=== PATIENT | female | born 1940 | race Caucasian/White ===

== ENCOUNTER 2018-11-27 02:11 | Day surgery (SDC) | payer MEDICARE ==
[~2018-11-27 02:11] MED LIST: ACEB200; CELE200; FLUO10; FLUO20; GLUC500; HYDCHL25; LOVA20; META400 PO; NIAC500; OXYACE10 PO
[2018-12-01] MEDS ORDERED: BUME1 PO (13:42)
[2018-12-01] MEDS ORDERED: Prozac20 MG PO (13:42)
[2018-12-01] MEDS ORDERED: Lovastatin20 MG PO (13:42)
[2018-12-01] MEDS ORDERED: VITAMIN D32000 UNIT PO (13:42)
[2018-12-01] MEDS ORDERED: Azor 5-20 MG T1 EACH PO (13:42)
[2018-12-01] MEDS ORDERED: VITAMIN C500 M1 PO (13:43)
[2018-12-01] MEDS ORDERED: Vitamin B Comple1 EA PO (13:43)
[2018-12-01] MEDS ORDERED: Flovent 110 MCG12 GM INH (13:44)
[2018-12-01] MEDS ORDERED: IRON INFUSIONS (13:44)
[2018-12-01] MEDS ORDERED: TIOT18 INH (13:44)
[2018-12-01] MEDS ORDERED: ALBU90OI61 INH (13:44)
[2018-12-01] MEDS ORDERED: LISI5 PO (13:45)
== END 2018-11-27 22:51 | disposition home or self-care (01) ==
LOC: US 02:11
DX: R59.0 Localized enlarged lymph nodes (principal)
CPT/HCPCS: 76857

== ENCOUNTER 2018-12-10 11:48 | Day surgery (SDC) | payer MEDICARE ==
[~2018-12-10] VITALS: Ht 154.9 cm; Wt 92.6 kg
[~2018-12-10 11:48] MED LIST changes: +ALBU90OI61 INH; +Azor 5-20 MG T1 EACH PO; +BUME1 PO; +Flovent 110 MCG12 GM INH; +IRON INFUSIONS; +LISI5 PO; +Lovastatin20 MG PO; +Prozac20 MG PO; +TIOT18 INH; +VITAMIN C500 M1 PO; +VITAMIN D32000 UNIT PO; +Vitamin B Comple1 EA PO
[2018-12-10] MEDS ORDERED: POTCHL10ER PO (12:29)
== END 2018-12-10 14:53 | disposition home or self-care (01) ==
LOC: ORSCSDS 11:48
PROVIDERS: Internal Medicine Gastroenterology
PROC: 0D5H8ZZ Destruction of Cecum, Via Natural or Artificial Opening Endoscopic (ICD-10-PCS; principal; 2018-12-10 13:00)
PROC: 0DB68ZX Excision of Stomach, Via Natural or Artificial Opening Endoscopic, Diagnostic (ICD-10-PCS; principal; 2018-12-10 13:00)
PROC: 0D5K8ZZ Destruction of Ascending Colon, Via Natural or Artificial Opening Endoscopic (ICD-10-PCS; principal; 2018-12-10 13:00)
PROC: 0DB98ZX Excision of Duodenum, Via Natural or Artificial Opening Endoscopic, Diagnostic (ICD-10-PCS; principal; 2018-12-10 13:00)
DX: D50.9 Iron deficiency anemia, unspecified (principal); R19.5 Other fecal abnormalities; K55.20 Angiodysplasia of colon without hemorrhage; K57.30 Diverticulosis of large intestine without perforation or abscess without bleeding; K31.7 Polyp of stomach and duodenum; K29.80 Duodenitis without bleeding; K29.70 Gastritis, unspecified, without bleeding; I10 Essential (primary) hypertension; E11.9 Type 2 diabetes mellitus without complications; Z87.891 Personal history of nicotine dependence; J44.9 Chronic obstructive pulmonary disease, unspecified; Z79.899 Other long term (current) drug therapy
CPT/HCPCS: 82947; 87081; 88305; 88342; J2405; J2704; J7120

== ENCOUNTER 2019-01-02 07:57 | Day surgery (SDC) | payer MEDICARE ==
[~2019-01-02 07:57] MED LIST changes: +POTCHL10ER PO
== END 2019-01-02 23:36 | disposition home or self-care (01) ==
LOC: MOI US 07:57
PROC: 07B53ZX Excision of Right Axillary Lymphatic, Percutaneous Approach, Diagnostic (ICD-10-PCS; principal; 2019-01-02)
DX: C85.14 Unspecified B-cell lymphoma, lymph nodes of axilla and upper limb (principal)
CPT/HCPCS: 38505; 76942; 88305; 88341; 88342

== ENCOUNTER → 2019-04-18 | Outpatient (CLI) | payer MEDICARE ==
[~2019-04-18] MED LIST changes: +Azor 10-20 MG1 EACH PO; +Baclofen10 MG PO; +Bumetanide1 MG PO; +COREG6.25 MG PO; +Flovent Disku100 MCG INH; +IBUP800 PO; +LOSA25 PO; +LOVA40 PO; +Percocet 5-3251 EACH PO
[2019-04-18 14:18] LABS: BASOPHILS ABSOLUTE AUTO 0.05 K/mm3 (0.00-0.23); BASOPHILS PERCENT AUTO 1 % (0-2); EOSINOPHILS ABSOLUTE AUTO 0.32 K/mm3 (0.00-0.68); EOSINOPHILS PERCENT AUTO 3 % (0-6); Hematocrit 36.3 % (33.0-51.0); Hemoglobin 11.9 g/dL (11.5-16.0); IMMATURE GRAN ABSOLUTE AUTO 0.06 K/mm3 (0.00-0.10); IMMATURE GRAN PERCENT AUTO 1 % (0-1); LYMPHOCYTES ABSOLUTE AUTO 2.14 K/mm3 (0.84-5.20); LYMPHOCYTES PERCENT AUTO 21 % (21-46); MONOCYTES ABSOLUTE AUTO 0.95 K/mm3 (0.16-1.47); MONOCYTES PERCENT AUTO 9 % (4-13); Mean Corpuscular HGB 29.2 pg (26.0-34.0); Mean Corpuscular HGB Conc 32.8 g/dL (31.5-36.5); Mean Platelet Volume 9.8 fL (9.1-12.4); NEUTROPHILS ABSOLUTE AUTO 6.93 K/mm3 (1.96-9.15); NEUTROPHILS PERCENT AUTO 66 % (41-73); Platelet Count 202 K/mm3 (150-400); RDW Coefficient Variation 14.4 % (11.7-14.2); RDW Standard Deviation 46.5 fL (35.1-46.3); Red Blood Cell Count 4.07 M/mm3 (3.80-5.20); White Blood Cell Count 10.45 K/mm3 (4.00-11.30)
[2019-04-18 14:25] LABS: Mean Corpuscular Volume 89 fL (80-100)
[2019-04-18 14:37] LABS: Albumin, Blood 3.2 g/dL (3.4-5.0); Bun/Creatinine Ratio 19.2 (12.0-20.0); Calcium, Blood 9.1 mg/dL (8.5-10.1); Creatinine, Blood 1.25 mg/dL (0.40-1.00); Potassium, Blood 3.7 mmol/L (3.5-5.5)
[2019-04-18 15:28] LABS: Albumin/Globulin Ratio 0.9 (0.8-1.8); Bilirubin, Total 0.3 mg/dL (0.1-1.0); Globulin, Blood 3.7 g/dL (2.2-4.0); Total Protein, Blood 6.9 g/dL (6.4-8.2)
== END ==
LOC: LAB SHORT 14:15 → LAB EV 14:15
PROVIDERS: Emergency Medicine
DX: R42 Dizziness and giddiness (principal)
CPT/HCPCS: 80053; 85025

== ENCOUNTER 2019-05-01 11:47 | Emergency (ER) | payer MEDICARE ==
[~2019-05-01] VITALS: Ht 154.9 cm; Wt 96.6 kg
[~2019-05-01 11:47] MED LIST changes: -Azor 10-20 MG1 EACH PO; -Baclofen10 MG PO; -Bumetanide1 MG PO; -COREG6.25 MG PO; -Flovent Disku100 MCG INH; -IBUP800 PO; -LOSA25 PO; -LOVA40 PO; -Percocet 5-3251 EACH PO
[2019-05-01] MEDS ORDERED: COREG6.25 MG PO (13:04)
[2019-05-01] MEDS ORDERED: Flovent Disku100 MCG INH (13:04)
[2019-05-01] MEDS ORDERED: LOSA25 PO (13:07)
[2019-05-01] MEDS ORDERED: Azor 10-20 MG1 EACH PO (14:03)
[2019-05-01] MEDS ORDERED: Bumetanide1 MG PO (14:04)
[2019-05-01] MEDS ORDERED: LOVA40 PO (14:05)
[2019-05-01] MEDS ORDERED: Percocet 5-3251 EACH PO (16:52)
[2019-05-01] MEDS ORDERED: IBUP800 PO (16:52)
[2019-05-01] MEDS ORDERED: Baclofen10 MG PO (16:52)
== END 2019-05-01 19:02 | disposition home or self-care (01) ==
LOC: ER 11:47
DX: S09.90XA Unspecified injury of head, initial encounter (principal); G89.11 Acute pain due to trauma; M54.5 Low back pain; M25.511 Pain in right shoulder; M53.3 Sacrococcygeal disorders, not elsewhere classified; J44.9 Chronic obstructive pulmonary disease, unspecified; E11.9 Type 2 diabetes mellitus without complications; I10 Essential (primary) hypertension; Z88.8 Allergy status to other drugs, medicaments and biological substances; Z79.899 Other long term (current) drug therapy; W01.0XXA Fall on same level from slipping, tripping and stumbling without subsequent striking against object, initial encounter
CPT/HCPCS: 70450; 72100; 96372; 99284-25; J1170; J1885

== ENCOUNTER 2019-08-12 07:58 | Emergency (ER) | payer MEDICARE ==
[~2019-08-12] VITALS: Ht 154.9 cm; Wt 104.3 kg
[~2019-08-12 07:58] MED LIST changes: +Azor 10-20 MG1 EACH PO; +Baclofen10 MG PO; +Bumetanide1 MG PO; +COREG6.25 MG PO; +Flovent Disku100 MCG INH; +IBUP800 PO; +LOSA25 PO; +LOVA40 PO; +Percocet 5-3251 EACH PO
[2019-08-12 08:55] LABS: BASOPHILS ABSOLUTE AUTO 0.06 K/mm3 (0.00-0.23); BASOPHILS PERCENT AUTO 1 % (0-2); EOSINOPHILS ABSOLUTE AUTO 0.11 K/mm3 (0.00-0.68); EOSINOPHILS PERCENT AUTO 1 % (0-6); Hematocrit 39.5 % (33.0-51.0); Hemoglobin 11.6 g/dL (11.5-16.0); IMMATURE GRAN ABSOLUTE AUTO 0.08 K/mm3 (0.00-0.10); IMMATURE GRAN PERCENT AUTO 1 % (0-1); LYMPHOCYTES ABSOLUTE AUTO 2.44 K/mm3 (0.84-5.20); LYMPHOCYTES PERCENT AUTO 22 % (21-46); MONOCYTES ABSOLUTE AUTO 1.48 K/mm3 (0.16-1.47); MONOCYTES PERCENT AUTO 13 % (4-13); Mean Corpuscular HGB 26.2 pg (26.0-34.0); Mean Corpuscular HGB Conc 29.4 g/dL (31.5-36.5); Mean Corpuscular Volume 89 fL (80-100); NEUTROPHILS ABSOLUTE AUTO 7.11 K/mm3 (1.96-9.15); NEUTROPHILS PERCENT AUTO 63 % (41-73); Platelet Count 242 K/mm3 (150-400); RDW Coefficient Variation 17.9 % (11.7-14.2); RDW Standard Deviation 58.4 fL (35.1-46.3); Red Blood Cell Count 4.42 M/mm3 (3.80-5.20); White Blood Cell Count 11.28 K/mm3 (4.00-11.30)
[2019-08-12 09:06] LABS: Alanine Aminotransfer (ALT/SGP 54 U/L (12-78); Albumin, Blood 3.4 g/dL (3.4-5.0); Albumin/Globulin Ratio 0.9 (0.8-1.8); Alk Phos 147 U/L (50-136); Anion Gap 6 mmol/L (6-16); Aspartate Aminotrans (AST/SGOT 43 U/L (12-37); Bilirubin, Total 0.8 mg/dL (0.1-1.0); Blood Urea Nitrogen 46 mg/dL (8-24); Bun/Creatinine Ratio 31.9 (12.0-20.0); CO2, Blood 26 mmol/L (21-32); Calcium, Blood 9.4 mg/dL (8.5-10.1); Chloride, Blood 106 mmol/L (98-108); Creatinine, Blood 1.44 mg/dL (0.40-1.00); Globulin, Blood 3.8 g/dL (2.2-4.0); Glomerular Filtration Rate 37 (60-); Glucose, Blood 279 mg/dL (70-99); Potassium, Blood 5.5 mmol/L (3.5-5.5); Sodium, Blood 138 mmol/L (136-145); Total Protein, Blood 7.2 g/dL (6.4-8.2); Troponin I <0.015 ng/mL (0.000-0.040)
== END 2019-08-12 11:11 | disposition home or self-care (01) ==
LOC: ER 07:58
PROVIDERS: Emergency Medicine
DX: I48.91 Unspecified atrial fibrillation (principal); J44.9 Chronic obstructive pulmonary disease, unspecified; I10 Essential (primary) hypertension; E11.9 Type 2 diabetes mellitus without complications; Z87.891 Personal history of nicotine dependence; Z79.899 Other long term (current) drug therapy; Z79.51 Long term (current) use of inhaled steroids
CPT/HCPCS: 36415; 71046; 80053; 83880; 84484; 85025; 93005; 93010; 96374; 99285-25

== ENCOUNTER 2019-08-27 09:06 | Inpatient (IN) | payer MEDICARE ==
[~2019-08-27] VITALS: Ht 154.9 cm; Wt 102.6 kg
[~2019-08-27 09:06] MED LIST changes: -LOVA40 PO
[2019-08-27 09:40] LABS: BASOPHILS ABSOLUTE AUTO 0.05 K/mm3 (0.00-0.23); BASOPHILS PERCENT AUTO 0 % (0-2); EOSINOPHILS ABSOLUTE AUTO 0.05 K/mm3 (0.00-0.68); EOSINOPHILS PERCENT AUTO 0 % (0-6); Hematocrit 38.7 % (33.0-51.0); Hemoglobin 11.6 g/dL (11.5-16.0); IMMATURE GRAN ABSOLUTE AUTO 0.09 K/mm3 (0.00-0.10); IMMATURE GRAN PERCENT AUTO 1 % (0-1); LYMPHOCYTES ABSOLUTE AUTO 2.32 K/mm3 (0.84-5.20); LYMPHOCYTES PERCENT AUTO 18 % (21-46); MONOCYTES ABSOLUTE AUTO 1.54 K/mm3 (0.16-1.47); MONOCYTES PERCENT AUTO 12 % (4-13); Mean Corpuscular HGB 25.8 pg (26.0-34.0); Mean Corpuscular Volume 86 fL (80-100); Mean Platelet Volume 11.3 fL (9.1-12.4); NEUTROPHILS PERCENT AUTO 69 % (41-73); Platelet Count 226 K/mm3 (150-400); RDW Coefficient Variation 17.5 % (11.7-14.2); RDW Standard Deviation 55.2 fL (35.1-46.3); Red Blood Cell Count 4.49 M/mm3 (3.80-5.20); White Blood Cell Count 12.95 K/mm3 (4.00-11.30)
[2019-08-27 10:05] LABS: Albumin, Blood 3.3 g/dL (3.4-5.0); Albumin/Globulin Ratio 0.9 (0.8-1.8); Bilirubin, Total 1.1 mg/dL (0.1-1.0); Bun/Creatinine Ratio 27.3 (12.0-20.0); Calcium, Blood 10.2 mg/dL (8.5-10.1); Creatinine, Blood 1.39 mg/dL (0.40-1.00); Globulin, Blood 3.8 g/dL (2.2-4.0); Potassium, Blood 5.8 mmol/L (3.5-5.5); Total Protein, Blood 7.1 g/dL (6.4-8.2)
[2019-08-27 10:07] LABS: Troponin I 0.019 ng/mL (0.000-0.040)
[2019-08-27] MEDS ORDERED: SPIRONOLACTONE25 MG PO (12:22)
[2019-08-27] MEDS ORDERED: OLMESARTAN MEDO20 MG PO (12:23)
[2019-08-27] MEDS ORDERED: METO50ER PO (12:23)
[2019-08-27] MEDS ORDERED: TORSE20 PO (12:24)
--- NOTE | 2019-08-27 14:49 | NUR ---
PT ADMITTED FROM ED TO PCU 11. SHE IS SOB ON EXERTION, TELE IN PLACE AFIB IN 1TEENS NOTED. XRAY REPORT SHOWS POSSIBILITY OF PE. CALL TO DR SUAREZ TO MAKE HIM AWARE. STATES HE WILL REVIEW FURTHER
[2019-08-27] MEDS ORDERED: CARV6.25 PO (15:35)
[2019-08-27] MEDS ORDERED: Percocet 5-3251 EACH PO (15:36)
[2019-08-27] MEDS ORDERED: TYLECOD3 PO (15:38)
[2019-08-27] MEDS ORDERED: ELIQUIS5 MG PO (15:38)
[2019-08-27] MEDS ORDERED: Fluocinonide15 GM TOP (15:46)
[2019-08-27] MEDS ORDERED: CLOB.05TO TOP (15:55)
--- NOTE | 2019-08-27 17:59 | NUR ---
Echocardiogram completed.
[2019-08-27 19:02] LABS: Source, Urine Clean Catch
[2019-08-27 19:06] LABS: Bilirubin, Urine Neg (Neg); Blood, Urine Neg (Neg); Glucose Qualitative, Urine Neg (Neg); Ketones, Urine Neg (Neg); Leukocyte Esterase, Urine Neg (Neg); Nitrite, Urine Neg (Neg); Protein, Urine Neg (Neg); Urobilinogen, Urine NORM (Normal)
[2019-08-27 19:14] LABS: Appearance, Urine Clear (Clear); Color, Urine Pale Yellow (P-Yellow)
--- NOTE | 2019-08-27 19:15 | NUR ---
RECEIVED REPORT FROM ZULEMA SHAFFER. ASSUMED CARE OF PT. IN NO ACUTE DISTRESS AT THIS TIME. DENIES ANY NEEDS, CALL LIGHT AND POSSESSIONS IN REACH, WILL CONTINUE TO MONITOR.
--- NOTE | 2019-08-27 19:33 | NUR ---
SHIFT SUMMARY: PT RESTING QUIETLY IN BED. ASSISTED TO RESTROOM, DIVIDING MACHINE OPERATOR HELPER BROUGHT IN NEW ATTENDS. FAMILY LEFT FOR NIGHT. CURRENTLY AFIB 1TEENS ON TELE. NO ACUTE NEEDS OR CONCERNS AT THIS TIME.
[2019-08-28 04:44] LABS: BASOPHILS ABSOLUTE AUTO 0.05 K/mm3 (0.00-0.23); BASOPHILS PERCENT AUTO 0 % (0-2); EOSINOPHILS ABSOLUTE AUTO 0.15 K/mm3 (0.00-0.68); EOSINOPHILS PERCENT AUTO 1 % (0-6); Hematocrit 34.1 % (33.0-51.0); Hemoglobin 10.4 g/dL (11.5-16.0); IMMATURE GRAN ABSOLUTE AUTO 0.06 K/mm3 (0.00-0.10); IMMATURE GRAN PERCENT AUTO 1 % (0-1); LYMPHOCYTES ABSOLUTE AUTO 3.02 K/mm3 (0.84-5.20); LYMPHOCYTES PERCENT AUTO 25 % (21-46); MONOCYTES ABSOLUTE AUTO 1.65 K/mm3 (0.16-1.47); MONOCYTES PERCENT AUTO 14 % (4-13); Mean Corpuscular HGB 25.8 pg (26.0-34.0); Mean Corpuscular HGB Conc 30.5 g/dL (31.5-36.5); Mean Corpuscular Volume 85 fL (80-100); Mean Platelet Volume 10.6 fL (9.1-12.4); NEUTROPHILS ABSOLUTE AUTO 7.11 K/mm3 (1.96-9.15); NEUTROPHILS PERCENT AUTO 59 % (41-73); Platelet Count 184 K/mm3 (150-400); RDW Coefficient Variation 17.3 % (11.7-14.2); RDW Standard Deviation 53.7 fL (35.1-46.3); Red Blood Cell Count 4.03 M/mm3 (3.80-5.20); White Blood Cell Count 12.04 K/mm3 (4.00-11.30)
[2019-08-28 05:04] LABS: Alanine Aminotransfer (ALT/SGP 50 U/L (12-78); Albumin, Blood 2.8 g/dL (3.4-5.0); Albumin/Globulin Ratio 0.8 (0.8-1.8); Alk Phos 128 U/L (50-136); Anion Gap 5 mmol/L (6-16); Aspartate Aminotrans (AST/SGOT 42 U/L (12-37); Bilirubin, Total 0.8 mg/dL (0.1-1.0); Blood Urea Nitrogen 41 mg/dL (8-24); Bun/Creatinine Ratio 32.5 (12.0-20.0); CHOL/HDL RATIO 3.2; CO2, Blood 30 mmol/L (21-32); Calcium, Blood 9.6 mg/dL (8.5-10.1); Chloride, Blood 104 mmol/L (98-108); Cholesterol 94 mg/dL (50-200); Creatinine, Blood 1.26 mg/dL (0.40-1.00); Globulin, Blood 3.4 g/dL (2.2-4.0); Glomerular Filtration Rate 43 (60-); Glucose, Blood 90 mg/dL (70-99); HDL Cholesterol 29 mg/dL (>39); LDL/HDL RATIO 1.7; Low Density Lipoprotein Chol 49 mg/dL (0-110); Potassium, Blood 4.2 mmol/L (3.5-5.5); Sodium, Blood 139 mmol/L (136-145); Total Protein, Blood 6.2 g/dL (6.4-8.2); Triglycerides 82 mg/dL (30-160); Very Low Density Lipoprot Chol 16 mg/dL (6-32)
--- NOTE | 2019-08-28 07:10 | NUR ---
recvd bedside report from previous shift ZULEMA Bermudez/Robb. pt a/o x 4, pleasant/cooperative, in bed. bed rails up x 2, call light within reach, bed in lowest position.
--- NOTE | 2019-08-28 08:00 | NUR ---
PT RESTING IN BED COMFORTABLY, IN NO ACUTE DISTRESS. WAS MONITORED EVERY 1-2 HOURS WITH NEEDS MET, DENIES ANY NEEDS AT THIS TIME. SLEPT T/O SHIFT, VS STABLE. CALL LIGHT AND POSSESSIONS IN REACH, BED IN LOW AND LOCKED POSITION.
--- NOTE | 2019-08-28 11:33 | NUR ---
family in with pt
--- NOTE | 2019-08-28 12:00 | NUR ---
dr dickinson rounding on pt, transfer status med w/telemetry
--- NOTE | 2019-08-28 19:28 | NUR ---
shift summary: vss, no acute changes, tele shows afib in 80-90. pt shows a/o x 4, pleasant/cooperative, no n/v, tolerated PO intake. voiding with diuretic, BM x 1 today. no pain, uses fww to bathroom, family has visited today, worked with PT/OT this shift. lungs are diminished, no crackles, no wheezes. pt states she feels much better.
--- NOTE | 2019-08-28 19:30 | NUR ---
BEDSIDE REPORT REC'D FROM EDIL POOLE. PT UP TO BR AND AMBULATING BACK TO BED WITH FWW UPON ARRIVAL TO ROOM FOR REPORT. PT NOTED TO HAVE BRUISING ON FACE FROM RECENT FALL. ASSESSMENT NOTED. VSS. CALL LIGHT IN REACH. RT TO ROOM TO SET UP HOME CPAP. BED ALARM IN PLACE.
--- NOTE | 2019-08-28 23:30 | NUR ---
PAIN MEDS GIVEN FOR FACE, BACK PAIN AND TO HELP SLEEP. CALL LIGHT IN REACH.
--- NOTE | 2019-08-29 05:10 | NUR ---
SHIFT SUMMARY PT HAS BEEN SLEEPING SINCE 329 WITH CPAP OFF AND ON ROOM AIR. CONT BIOX ALARMING OFF AND ON. BUT PT STATES MASK IS HURTING HER FACE. HAS BEEN GETTING UP TO BR ON HER OWN FOR THE MOST PART AND CALLING FOR ASSISTANCE BACK TO BED. NO OTHER CHANGES AND NO NEW COMPLAINTS. WILL CONT TO MONITOR, DOCUMENT ANY CHANGES AND WILL REPORT TO DAY SHIFT RN. CALL LIGHT IN REACH.
--- NOTE | 2019-08-29 09:52 | NUR ---
pt laying in bed awake, a/ox3, maybe a bit forgetful at times, pleasant and cooperative with care, follows commands well, lungs are course with exp wheezing in mid and bases, clear in upper [place], resp even and unlabored, on r/a, no cough noted, hrirr, tele in place running afib per monitor, see strip, rate in the low 100's, trace pitting edema in the b/l le, not so much in feet, iv site to rac, site is clear and patent, btx4, abd flat soft nontender, voids via br, skin c/w/d, maew, lizzie, call light in reach.
--- NOTE | 2019-08-29 15:31 | NUR ---
pt has been sitting up in chair all afternoon, family in visiting. wants a recliner chair, software program manager is looking for one for her Dr. Mulligan was in and wants to increase her dose of metoprol, sbp was 95 this afternoon so could not give an extra 25mg. no further changes. call light in reach.
--- NOTE | 2019-08-29 18:40 | NUR ---
PT BACK TO BED, STATES RECLINER ISN'T THAT COMFORTABLE. DOING OK. STATES SHE IS COMFORTABLE IN BED AT THIS TIME, NO FURTHER NEEDS, CALL LIGHT IN REACH.
--- NOTE | 2019-08-29 19:55 | NUR ---
Assumed Care Pt alert and oriented, able to make needs known with call light. VSS. Tele showing afib in 110-120, pt without sx. Denies SOB, denies Palpitations, denies dizziness or lightheadedness. See shift assessment for detailed assessment. Pt up to bathroom with walker and SBA. Steady on feet. No acute concerns at this time. Pt is S/L. PIV leaking, removed. Will continue to monitor
[2019-08-30 02:42] LABS: BASOPHILS ABSOLUTE AUTO 0.03 K/mm3 (0.00-0.23); BASOPHILS PERCENT AUTO 0 % (0-2); EOSINOPHILS ABSOLUTE AUTO 0.32 K/mm3 (0.00-0.68); EOSINOPHILS PERCENT AUTO 3 % (0-6); Hemoglobin 10.9 g/dL (11.5-16.0); IMMATURE GRAN ABSOLUTE AUTO 0.06 K/mm3 (0.00-0.10); IMMATURE GRAN PERCENT AUTO 1 % (0-1); LYMPHOCYTES ABSOLUTE AUTO 2.86 K/mm3 (0.84-5.20); LYMPHOCYTES PERCENT AUTO 27 % (21-46); MONOCYTES ABSOLUTE AUTO 1.25 K/mm3 (0.16-1.47); MONOCYTES PERCENT AUTO 12 % (4-13); Mean Corpuscular HGB 25.6 pg (26.0-34.0); Mean Corpuscular HGB Conc 30.3 g/dL (31.5-36.5); Mean Corpuscular Volume 85 fL (80-100); Mean Platelet Volume 10.9 fL (9.1-12.4); NEUTROPHILS ABSOLUTE AUTO 6.01 K/mm3 (1.96-9.15); NEUTROPHILS PERCENT AUTO 57 % (41-73); Platelet Count 208 K/mm3 (150-400); RDW Coefficient Variation 17.4 % (11.7-14.2); RDW Standard Deviation 53.3 fL (35.1-46.3); Red Blood Cell Count 4.25 M/mm3 (3.80-5.20); White Blood Cell Count 10.53 K/mm3 (4.00-11.30)
--- NOTE | 2019-08-30 02:53 | NUR ---
No acute changes, pt up to bathroom with one assist. VSS. Report off to ZULEMA Marquis who assumes care.
[2019-08-30 02:58] LABS: Calcium, Blood 9.9 mg/dL (8.5-10.1); Creatinine, Blood 1.25 mg/dL (0.40-1.00); Potassium, Blood 3.9 mmol/L (3.5-5.5)
[2019-08-30] MEDS ORDERED: METF500 PO (09:59)
[2019-08-30] MEDS ORDERED: FURO40 PO (10:00)
[2019-08-30] MEDS ORDERED: GLIP5 PO (10:01)
[2019-08-30] MEDS ORDERED: POTA10T PO (10:01)
[2019-08-30] MEDS ORDERED: XARELTO15 MG PO (10:45)
--- NOTE | 2019-08-30 11:52 | NUR ---
DISCHARGE HOME PT DISCHARGED HOME AFTER TEACHING WITH SON/PT. PT NOT A GOOD HISTORIAN AT ALL. SHE HAS NO IDEA WHAT MEDICATIONS SHE REALLY TAKES. TALKED WITH FAMILY ABOUT GLUCOMETER AND PERSCRIPTIONS. PROVIDED TO PT THE 5gig CARDS FOR DISCOUNT. IV REMOVED WITH CANNULA INTACT. PRESSURE DRESSING APPLIED. CONTINUE POT.
== END 2019-08-30 11:58 | disposition home health service (06) | DRG 308 ==
LOC: ER 09:06 → PCU 12:03
PROVIDERS: Emergency Medicine; ADMIT Internal Medicine
DX: I48.20 Chronic atrial fibrillation, unspecified (principal); I50.33 Acute on chronic diastolic (congestive) heart failure; I11.0 Hypertensive heart disease with heart failure; E78.5 Hyperlipidemia, unspecified; G47.33 Obstructive sleep apnea (adult) (pediatric); J44.9 Chronic obstructive pulmonary disease, unspecified; E11.65 Type 2 diabetes mellitus with hyperglycemia; F41.9 Anxiety disorder, unspecified; F32.9 Major depressive disorder, single episode, unspecified
CPT/HCPCS: 36415; 71045; 71260; 80048; 80053; 80061; 81003; 82947; 83036; 83880; 84484; 85025; 93005; 93010; 93308; 93321; 94640; 94660; 94762; 96374; 96375; 97116; 97162; 97165; 97530; 97535; 99285-25; A9270-GY; J1650; J1940; Q9967

== ENCOUNTER 2019-11-25 09:06 | Inpatient (IN) | payer MEDICARE, OTHER ==
[~2019-11-25] VITALS: Ht 154.9 cm; Wt 98.2 kg
[~2019-11-25 09:06] MED LIST changes: -ALBU90OI61 INH; +CARV6.25 PO; +CLOB.05TO TOP; +ELIQUIS5 MG PO; -Flovent Disku100 MCG INH; +Fluocinonide15 GM TOP; +GLIP5 PO; -Prozac20 MG PO; +SPIRONOLACTONE25 MG PO; -TIOT18 INH; +TORSE20 PO; +TYLECOD3 PO
[2019-11-25 09:52] LABS: BASOPHILS ABSOLUTE AUTO 0.03 K/mm3 (0.00-0.23); BASOPHILS PERCENT AUTO 0 % (0-2); EOSINOPHILS ABSOLUTE AUTO 0.16 K/mm3 (0.00-0.68); EOSINOPHILS PERCENT AUTO 2 % (0-6); Hematocrit 19.1 % (33.0-51.0); IMMATURE GRAN ABSOLUTE AUTO 0.07 K/mm3 (0.00-0.10); IMMATURE GRAN PERCENT AUTO 1 % (0-1); LYMPHOCYTES PERCENT AUTO 20 % (21-46); MONOCYTES ABSOLUTE AUTO 1.47 K/mm3 (0.16-1.47); MONOCYTES PERCENT AUTO 15 % (4-13); Mean Corpuscular HGB 19.7 pg (26.0-34.0); Mean Corpuscular HGB Conc 26.7 g/dL (31.5-36.5); Mean Corpuscular Volume 74 fL (80-100); Mean Platelet Volume 10.7 fL (9.1-12.4); NEUTROPHILS ABSOLUTE AUTO 6.42 K/mm3 (1.96-9.15); NEUTROPHILS PERCENT AUTO 63 % (41-73); NRBC ABSOLUTE 0.23 K/mm3 (0.00-0.02); NRBC Auto 2.3 /100 WBC (0.0-0.2); Platelet Count 341 K/mm3 (150-400); RDW Coefficient Variation 19.9 % (11.7-14.2); RDW Standard Deviation 52.4 fL (35.1-46.3); Red Blood Cell Count 2.59 M/mm3 (3.80-5.20); White Blood Cell Count 10.15 K/mm3 (4.00-11.30)
[2019-11-25 09:56] LABS: Hemoglobin 5.1 g/dL (11.5-16.0)
[2019-11-25 10:18] LABS: Albumin, Blood 2.9 g/dL (3.4-5.0); Albumin/Globulin Ratio 0.9 (0.8-1.8); Bilirubin, Total 0.6 mg/dL (0.1-1.0); Bun/Creatinine Ratio 25.6 (12.0-20.0); Calcium, Blood 9.5 mg/dL (8.5-10.1); Creatinine, Blood 1.64 mg/dL (0.40-1.00); Globulin, Blood 3.4 g/dL (2.2-4.0); Potassium, Blood 5.4 mmol/L (3.5-5.5); Total Protein, Blood 6.3 g/dL (6.4-8.2)
[2019-11-25 10:20] LABS: Troponin I 0.052 ng/mL (0.000-0.040)
[2019-11-25] MEDS ORDERED: TIOT18 INH (12:18)
[2019-11-25] MEDS ORDERED: METF500C PO (12:20)
[2019-11-25] MEDS ORDERED: FURO40 PO (12:21)
[2019-11-25] MEDS ORDERED: Lovastatin20 MG PO (12:22)
[2019-11-25] MEDS ORDERED: XARELTO15 MG PO (12:22)
[2019-11-25] MEDS ORDERED: Neurontin 100100 MG PO (12:22)
[2019-11-25] MEDS ORDERED: Prozac20 MG PO (12:23)
[2019-11-25] MEDS ORDERED: ALBU90OI61 INH (12:24)
[2019-11-25] MEDS ORDERED: Flovent Disku100 MCG INH (12:27)
[2019-11-25] MEDS ORDERED: OLMESARTAN MEDO20 MG PO (12:30)
[2019-11-25] MEDS ORDERED: POTA10T PO (13:14)
[2019-11-25] MEDS ORDERED: METO50ER PO (13:14)
--- NOTE | 2019-11-25 14:40 | NUR ---
Patient arrived via gurney and PRBC infusing. She is alert and oriented and able to communicate her needs and denies any pain. She has arrived on RA and has been placed back on AirVO 80L 75% and has been reduced to 50L 50% and sats 94%. Restarted blood at 125ml/hr and she is still hypertensive 80's systolic and MAP >60. MAEW. She has arrived in A-fib rapid rate 100-120's. She is on Covid rule out precautions.
--- NOTE | 2019-11-25 16:12 | NUR ---
Called Dr Jeanine Rogers to clarify blood orders and he wants 3 units and re-check Hgb. Just started 2nd unit PRBC and systolic 70-80's. Vane POOLE starting PICC line for possible pressors. She states notr not feel dizzy or extra weak with hypotension. HR a-fib 80-110's. She still remains 50L 50% and sats 94%.
--- NOTE | 2019-11-25 18:15 | NUR ---
Patient has been resting watching TV. PICC Line has been placed BREE and approved by Rad. She remains on AirVo at 50L 50% and sats 99%. Systolic one teen after second unit PRBC's are in. Third one to be started Noc shift. No other significant changes . Will have RT decrease settings on AirVo to wean down.
--- NOTE | 2019-11-25 19:29 | NUR ---
ASSUMPTION OF CARE PT AWAKE IN BED, ON AIRVO @ 50L AND 50% FiO2 WITH 02 SATURATIONS 98-100%, PLAN TO DECREASE SUPPLEMENTAL OXYGEN TOLERATED, PT REPORTS IMPROVED SOB AND ABLE TO BREATHE MUCH BETTER THAN ARRIVAL. MONITOR SHOWS AFIB WITH HR 80'S-105, BP STABLE. 3RD UNIT OF PRBC CURRENTLY INFUSING, PLAN FOR REPEAT H&H AFTER INFUSING COMPLETE.
--- NOTE | 2019-11-25 20:30 | NUR ---
IN PTS ROOM FOR FULL ASSESSMENT, PT A&Ox4, AIRVO SETTINGS TITRATED DOWN BY RT, PT TOLERATING WELL. PT ANXIOUS WITH TURN, STS SHE IS NERVOUS ABOUT BECOMING SOB, O2 SATURATIONS MAINTAINED>95% WITH TURN, INCREASE IN HR NOTED (UP TO 130'S) WITH EXERTION. EDUCATED PT ABOUT IMPORTANCE OF TURNING/REPOSITION IN BED WHILE IN THE HOSPITAL SHE IS NOT ACTIVE/MOBILE SHE IS AT HOME. PT REPORTS BEING FAIRLY INDEPENDENT AT HOME, STS USES WALKER AT BASELINE, LIVES WITH SON.
--- NOTE | 2019-11-25 23:28 | NUR ---
TO PTS ROOM, O2 SATURATIONS>95% ON AIRVO 45L AND 38% FIO2, TRANSITIONED TO 5L PER NC, TITRATED TO 2L AND THEN RA. O2 SATURATIONS 90-92% ON RA. RT TO ROOM TO SET UP CPAP.
[2019-11-25 23:48] LABS: Hematocrit 26.1 % (33.0-51.0); Hemoglobin 8.1 g/dL (11.5-16.0)
--- NOTE | 2019-11-26 04:08 | NUR ---
SHIFT SUMMARY PT REMAINS STABLE T/O NIGHT, REMAINS ON CPAP WHILE SLEEPING, TOLERATING WELL. O2 SATURATIONS MAINTAINED>90%, MONITOR SHOWS AFIB, BP STABLE WITH SBP 110-120'S. NO URINE OUTPUT THIS SHIFT, BLADDER SCAN EARLIER IN SHIFT SHOWED APPROX 15ml OF URINE. PT NPO OVERNIGHT, SMALL SIP OF WATER WITH MEDICATION. PT REPOSITIONS SELF INDEPENDENTLY BUT NEEDS ENCOURAGEMENT/REMINDING TO TURN. REPORT GIVEN TO IVETH POOLE.
--- NOTE | 2019-11-26 04:36 | NUR ---
ASSUMPTION OF CARE: PT A&O, ANXIOUS. IN AFIB, HR 90-120S SBP IN THE 110-120S.ON CPAP FOR SLEEP. LUNG SOUNDS ARE CLEAR WITH CRACKLES IN BASES. PT RECEIVED 3 UNITS PRBCS DURING DAYSHIFT AND BEGINNING OF NOC TO REVERSE ANEMIA. PT REPORTEDLY HAD NO URINE OUTPUT YESTERDAY. PICC TO BREE. LARGE AMOUNT OF BLOOD AT INSERTION SITE, BUT OTHERWISE DRESSING REMAINS INTACT. WILL CONTINUE TO MONITOR
[2019-11-26 04:38] LABS: BASOPHILS ABSOLUTE AUTO 0.05 K/mm3 (0.00-0.23); BASOPHILS PERCENT AUTO 0 % (0-2); EOSINOPHILS ABSOLUTE AUTO 0.23 K/mm3 (0.00-0.68); EOSINOPHILS PERCENT AUTO 2 % (0-6); Hematocrit 26.2 % (33.0-51.0); IMMATURE GRAN ABSOLUTE AUTO 0.09 K/mm3 (0.00-0.10); IMMATURE GRAN PERCENT AUTO 1 % (0-1); LYMPHOCYTES ABSOLUTE AUTO 2.92 K/mm3 (0.84-5.20); LYMPHOCYTES PERCENT AUTO 25 % (21-46); MONOCYTES ABSOLUTE AUTO 1.41 K/mm3 (0.16-1.47); MONOCYTES PERCENT AUTO 12 % (4-13); Mean Corpuscular HGB 23.5 pg (26.0-34.0); Mean Corpuscular HGB Conc 30.5 g/dL (31.5-36.5); Mean Platelet Volume 9.8 fL (9.1-12.4); NEUTROPHILS ABSOLUTE AUTO 6.98 K/mm3 (1.96-9.15); NEUTROPHILS PERCENT AUTO 60 % (41-73); NRBC ABSOLUTE 0.48 K/mm3 (0.00-0.02); NRBC Auto 4.1 /100 WBC (0.0-0.2); Platelet Count 273 K/mm3 (150-400); RDW Coefficient Variation 19.2 % (11.7-14.2); RDW Standard Deviation 53.8 fL (35.1-46.3); White Blood Cell Count 11.68 K/mm3 (4.00-11.30)
[2019-11-26 04:39] LABS: Mean Corpuscular Volume 77 fL (80-100)
[2019-11-26 04:57] LABS: Albumin, Blood 2.8 g/dL (3.4-5.0); Albumin/Globulin Ratio 0.9 (0.8-1.8); Bilirubin, Total 2.3 mg/dL (0.1-1.0); Bun/Creatinine Ratio 26.2 (12.0-20.0); Creatinine, Blood 1.68 mg/dL (0.40-1.00); Potassium, Blood 4.6 mmol/L (3.5-5.5); Total Protein, Blood 5.8 g/dL (6.4-8.2)
--- NOTE | 2019-11-26 06:04 | NUR ---
SHIFT SUMMARY: NO ACUTE CHANGES SINCE LAST NOTE
--- NOTE | 2019-11-26 08:00 | NUR ---
PT A&0X3. REPORTS 6/10 GENERALIZED PAIN. MED WITH TYLENOL #3 2 PO-SEE EMAR. NO NOTED NEURO DEFICITS. ECG SHOWS AFIB WITH RATE 80-100'S. BP WDL. LUNGS DIMINISHED IN THE BASES. SATS>90% ON 2 LITERS NASAL CANULA. PT IS ORTHOPNEIC AND DYSPNEIC WITH EXERTION. OCCASIONAL, NONPRODUCTIVE COUGH. NPO EXCEPT FOR MEDS WITH SIP OF WATER. CBG 109 ON AM LAB-NO INSULIN GIVEN. PT DENIES GI DISTRESS. ORAL MUCOSA VERY DRY. ORAL CARE DONE. PT STATES THAT SHE NORMALLY TAKE HER PILLS WITH APPLESAUCE AT HOME. WILL REQUEST ADAT TODAY. PT HAD NOT URINATED SINCE ADMIT. #16 FR CHI PLACED AND IMMEDIATELY 300 CC DARK, YELLOW URINE OUT. UA-SENT PER [facility] INSERTION PROTOCOL. PT LOWER EXTREMITIES EDEMATOUS-ELEVATED ON PILLOWS. LASIX 40 MG IVP-SCHEDULED DOSE GIVEN. PT SKIN IS PALE. YEAST LIKE RASH UNDER BREASTS, TO [place] AREA/GROIN. YEAST-LIKE DISCHARGE NOTED FROM [facility]. WILL NOTIFY MD AND REQUEST DIFLUCAN AND NYSTANTIN POWDER. CONTACTED PT SON CHEN TO REQUEST THAT HER PERSONAL CPAP BE BROUGHT IN. PT SON TO BRING IN PT CPAP "SOMETIME BEFORE NOON."
[2019-11-26 08:47] LABS: Source, Urine Catheter
[2019-11-26 08:58] LABS: Bilirubin, Urine Neg (Neg); Blood, Urine Neg (Neg); Glucose Qualitative, Urine Neg (Neg); Ketones, Urine Neg (Neg); Leukocyte Esterase, Urine 1+ (Neg); Nitrite, Urine Neg (Neg); Protein, Urine 1+ (Neg); Specific Gravity, Urine 1.015 (1.003-1.022); Urobilinogen, Urine NORM (Normal)
[2019-11-26 09:14] LABS: Appearance, Urine Clear (Clear); Color, Urine Yellow (P-Yellow)
[2019-11-26 09:16] LABS: Bacteria Few /hpf; Red Blood Cells, Urine 0-2 /hpf (0-2); Squamous Epithelial Cells Mod /hpf (Few); Transitional Epithelial Cells Rare /hpf (0-Rare)
[2019-11-26 11:57] LABS: Hematocrit 26.6 % (33.0-51.0); Hemoglobin 8.1 g/dL (11.5-16.0)
--- NOTE | 2019-11-26 14:00 | NUR ---
PT REPOSITIONED HERSELF IN BED AND APPLIED CPAP FOR NAP. PT NOW HAS HER CPAP FROM HOME.
[2019-11-26 17:19] LABS: Hematocrit 25.7 % (33.0-51.0); Hemoglobin 7.8 g/dL (11.5-16.0)
--- NOTE | 2019-11-26 21:30 | NUR ---
ASSUMPTION OF CARE ASSUMED CARE OF PT @ 1900, PT ALERT AND ORIENTED x4, ON 2L PER NC WITH O2 SATURATIONS>95%, HOME CPAP AT BEDSIDE FOR SLEEPING. MONITOR SHOWS AFIB, HR 90'S-110, HR INCREASES TO 140'S WITH EXERTION. PT TOLERATING PO INTAKE, CHI IN PLACE WITH SMALL AMOUTN OF OUTPUT. SKIN INTACT, PT REPORTS ITCHINESS TO BACK R/T "HEAT FROM THE PLASTIC MATTRESS", THERMOSTAT DECREASED IN ROOM, POWDER APPLIED TO BACK, PT REPORTS IMPROVEMENT. PT SHIFTS HIPS IN BED, ABLE TO REPOSITION SELF IN BED WITH ENCOURAGEMENT, PREFERS TO LAY SUPINE.
[2019-11-26 23:31] LABS: Hematocrit 29.9 % (33.0-51.0); Hemoglobin 9.1 g/dL (11.5-16.0)
--- NOTE | 2019-11-26 23:43 | NUR ---
PT CONCERNS PT EXPRESSES CONCERNS OVER ABILITY OF SON/FAMILY TO CARE FOR HER AT HOME. STS SHE WAS RECENTLY IN THE HOSPITAL FOR 3 DAYS AND IS UNSURE OF WHAT SHE DID WRONG TO END UP NEEDING HOSPITALIZATION AGAIN. PT REPORTS FEELING VERY WEAK AND IS CONCERNED WITH BEING ABLE TO WALK AGAIN. ASSURED PT THAT ONCE HGB LEVELS HAVE STABLIZED, OUR NEXT STEP WOULD BE TO WORK ON GAINING STRENGTH BACK.
--- NOTE | 2019-11-27 02:42 | NUR ---
PT BEATER MACHINE OPERATOR LIGHT REQUESTING SOMEONE TO ROOM. PT REPORTS HAVING "FEAR" AND TELLS THIS RN OF WHAT SEEMS TO HAVE BEEN A BAD DREAM BUT PT WAS HAVING DIFFICULTY DISCERNING EVENTS IN THE DREAM FROM REALITY. PT ORIENTED TO SELF, LOCATION, EVENT, MONTH AND YEAR. PT ANXIOUS ABOUT CURRENT SITUATION, VERY FIXATED ON ABILITY TO WALK. REASSURED PT THAT OUR STAFF WOULD WORK WITH PT TO INCREASE STRENGTH ONCE STABLE ENOUGH TO DO SO.
[2019-11-27 04:59] LABS: BASOPHILS ABSOLUTE AUTO 0.07 K/mm3 (0.00-0.23); BASOPHILS PERCENT AUTO 1 % (0-2); EOSINOPHILS ABSOLUTE AUTO 0.37 K/mm3 (0.00-0.68); EOSINOPHILS PERCENT AUTO 3 % (0-6); Hematocrit 29.2 % (33.0-51.0); Hemoglobin 9.1 g/dL (11.5-16.0); IMMATURE GRAN ABSOLUTE AUTO 0.11 K/mm3 (0.00-0.10); IMMATURE GRAN PERCENT AUTO 1 % (0-1); LYMPHOCYTES PERCENT AUTO 30 % (21-46); MONOCYTES ABSOLUTE AUTO 1.75 K/mm3 (0.16-1.47); MONOCYTES PERCENT AUTO 12 % (4-13); Mean Corpuscular HGB 24.8 pg (26.0-34.0); Mean Corpuscular HGB Conc 31.2 g/dL (31.5-36.5); Mean Platelet Volume 9.8 fL (9.1-12.4); NEUTROPHILS PERCENT AUTO 54 % (41-73); NRBC ABSOLUTE 0.34 K/mm3 (0.00-0.02); NRBC Auto 2.4 /100 WBC (0.0-0.2); Platelet Count 257 K/mm3 (150-400); RDW Coefficient Variation 19.5 % (11.7-14.2); RDW Standard Deviation 55.5 fL (35.1-46.3); Red Blood Cell Count 3.67 M/mm3 (3.80-5.20)
[2019-11-27 05:00] LABS: Mean Corpuscular Volume 80 fL (80-100)
[2019-11-27 05:19] LABS: Bun/Creatinine Ratio 29.4 (12.0-20.0); Calcium, Blood 8.8 mg/dL (8.5-10.1); Creatinine, Blood 1.63 mg/dL (0.40-1.00); Potassium, Blood 4.5 mmol/L (3.5-5.5)
--- NOTE | 2019-11-27 05:19 | NUR ---
SHIFT SUMMARY PT REMAINS STABLE T/O SHIFT, PLACES CPAP ON SELF FOR SLEEPING, CPAP IN PLACE FOR APPROX 4 HOURS THEN TO ROOM AIR, O2 SATURATIONS REMAIN>92%. PT REMAINS IN AFIB HR 90'S-120, INCREASES WITH EXERTION. PT ANXIOUS THIS EVENING, REPORTING FEARS OF HER SON NOT BEING ABLE TO CARE FOR HER ANYMORE AND CONCERNED ABOUT BEING ABLE TO WALK AGAIN, SITTING DOWN AND ALLOWING PT TO VERBALIZE HER FEARS SEEMS TO HELP ALLEVIATE SOME OF HER ANXIOUSNESS. [facility] REMAINS IN PLACE, LITTLE OUTPUT THIS SHIFT.
--- NOTE | 2019-11-27 10:12 | NUR ---
CARE ASSUMED PT UP TO CHAIR, RECEIVED BEDBATH FROM ZULEMA KURTZ, REPORT OF SOB WITH EXERTION, OTHERWISE TRANSFERRED WELL. NO SPO2 DESAT DURING TRANSFER, PT RECOVERED QUICKLY WITH REST, ON RA T/O TRANSFER AND AFTER, SPO2 LOW 90'S. TOLERATED BREAKFAST WITHOUT DIFFICULTY, TOOK MEDS WITH WATER AND APPLESAUCE. SPIRONOLACTONE AND 20MG LASIX IV ADMINISTERED, BP STABLE AFTER 1HOUR, SECOND 20MG LASIX THEN ADMINISTERED. CRACKLES NOTED IN BILAT BASES, HR 110-150 AFIB, PT DENIES CP AND SOB AT REST. DR. RM IN TO SEE PATIENT, NEW ORDERS. PT ASSISTED BACK TO BED, CARDIZEM GTT INITIATED AT 5MG/HR, WILL TITRATE TO EFFECT. SOB AGAIN NOTED DURING TRANSFER, PT RECOVERED QUICKLY, REMAINS ON RA. NYSTATIN TO SKIN FOLDS, YEAST NOTED IN GROIN AREA. LOTION TO DRY SKIN ON BACK, SKIN GROSSLY INTACT. PT SPOKE WITH SON ON PHONE, NOW NAPPING WITH HOME CPAP ON, DENIES NEEDS. HR 120, CARDIZEM INCREASED TO 10MG/HR.
--- NOTE | 2019-11-27 13:46 | NUR ---
Upon receiving an admit referral, I visit patient. Patient is sitting on a chair and alert. Patient tells me about her life, medical, family and carmen history. Patient talks about the emotional strain that comes from have several life limiting health issues. I listen empathically, normalize patient's experience, reinforce helpful attitudes and practices and provide recitation of Bible verses, emotional support, and prayer. Patient responds well and shows signs of encouragement and an elevated mood. I will continue to remain available to patient and family.
--- NOTE | 2019-11-27 14:30 | NUR ---
UPDATE PT TOOK A NAP WITH CPAP ON, O2 BLEED IN 2L/NC, SPO2 MID 90'S. PT WOKEN UP FOR LUNCH, GOT UP TO CHAIR, SOB WITH EXERTION, O2 2L/NC APPLIED FOR DESAT TO MID 80'S. PT RECOVERED WELL, 02 REMAINS ON. HR 80'S AT REST, 100 AFIB WITH EXERTION WITH CARDIZEM GTT AT 10MG/HR, PT DENIES CHEST DISCOMFORT. OTHER VSS,PT DID NOT HAVE A GOOD APPETITE FOR LUNCH BUT IS TOLERATING PO WITHOUT DIFFICULTY. PT REMAINS UP IN CHAIR, FEET ARE ELEVATED, PT IS TAKING A NAP.
--- NOTE | 2019-11-27 18:32 | NUR ---
END OF SHIFT PT HAS BEEN UP IN CHAIR SINCE LUNCH TIME, NAPPING ON AND OFF, TOLERATED CHAIR WELL. WORKED WITH PT/OT TODAY WITH GOOD EFFORT, REMAINS SOB WITH EXERTION DESPITE 2L/NC, NO DESATURATIONS DURING ACTIVITY. CARDIZEM GTT DECREASED TO 5MG/HR FOR HR 60'S, BP AND OTHER VSS. CARDIAC RHYTHM REMAINS AFIB, PT DENIES CHEST DISCOMFORT. O2 REMAINS AT 2L/NC, PT DENIES SOB AT REST, CRACKLES REMAIN PRESENT IN LOWER LOBES. TOLERATED FOOD WELL BUT HAD A POOR APPETITE THIS AFTERNOON. PT REMAINS ALERT, ORIENTED X4, SLIGHTLY ANXIOUS AT TIMES BUT EASILY REDIRECTED AND CALMED WITH EXPLANATIONS OF CARE. PT TO ICU ROOM 9 AT THIS TIME VIA WC WITH BELONGINGS, MEDS, AND CHART, REPORT TO ONCOMING SHIFT.
--- NOTE | 2019-11-27 19:22 | NUR ---
ASSUMED PT CARE FROM JAVIER TAYLOR RN AT 1900 PT SITTING UP IN CHAIR FINISHING DINNER. APPEARS ALERT AND ORIENTED AND ABLE TO MAKE NEEDS KNOWN. AFIB WITH HR 80-90'S; CARDIZEM GTT REMAINS AT 5 MG/HR. PICC LINE NOTED TO LEFT UPPER ARM. CALL LIGHT WITHIN REACH. BEDSIDE REPORT GIVEN.
--- NOTE | 2019-11-28 02:18 | NUR ---
CHANGE IN MENTATION PT HEARD ARICERING OUT FOR HELP. ASSISTED BY ANOTHER RN AT THIS TIME D/T THIS RN BEING CAUGHT UP IN ANOTHER PT'S ROOM. PT VERY CONFUSED ASKING WHY SHE IS BEING HELD HER AGAINST HER WILL AND THAT SHE WOULD LIKE TO SPEAK TO A DOCTOR TO GO HOME. THIS RN THEN WENT IN TO TALK TO PATIENT. SHE STATED THAT SHE "IS AT [facility]" AND WE HAVE HER "TIED DOWN TO THE BED WHERE SHE CAN'T GET OUT". SHOWED PT THAT SHE DID NOT HAVE ANY RESTRAINTS IN PLACE HOLDING HER FROM GETTING OUT OF BED. REMINDED HER THAT SHE REQUIRED TWO OF USE TO ASSIST GETTING HER INTO BED AND THAT SHE MAY FEEL SHE CAN'T GET OUT BECAUSE SHE NEEDS ASSISTANCE. VERBALIZED TO PT THAT SHE IS VERY CONFUSED, WHICH IS A CHANGE FROM HER BASELINE EARLIER. PT STATED SHE RECOGNIZED THAT, BUT CONTINUED TO MAKE RANDOM STATEMENTS THAT WE WERE LAUGHING AND CACKLING, THROWING A ALLIANCE PARTY, ETC... REASSURED PT THAT SHE WAS IN THE INTENSIVE CARE AND THAT THERE ARE A LOT OF PATIENTS THAT GET ADMITTED; THEREFORE, THAT MIGHT BE THE COMMOTION THAT SHE IS HEARING, BUT NOBODY IS "THROWING A ALLIANCE PARTY OR CACKLING" AT THE NURSES STATION. PT STATED THAT "WE SOUND REHEARSED" AND DEMANDED I CALL AN AMBULANCE AND HER SON TO COME AND TAKE HER TO A FOSTER HOME. ASKED PT IF SHE REMEMBERED ME FROM THE BEGINNING OF THE SHIFT IN WHICH SHE STATED, "YES". THEN ASKED IF SHE REMEMBERED US HAVING A CONVERSATION REGARDING HER NOT FEELING READY TO GO HOME TO WHY SHE WOULD LIKE TO SPEAK WITH CUTTING TABLE OPERATOR IN REGARDS TO PLACEMENT OPTIONS SHE FEELS HER SON IS UNABLE TO TAKE CARE OF HER. PT AGAIN STATED THAT I SOUNDED "REHEARSED" AND THAT SHE WASN'T "STUPID". REASSURED PT THAT NOBODY CALLED HER STUPID AND THEN INFORMED HER THAT I WAS GOING TO LET HER GO BACK TO SLEEP AND THAT THE DOCTOR WOULD BE AROUND IN THE MORNING TO DISCUSS DISCHARGE PLANS/POTENTIAL WITH HER.
--- NOTE | 2019-11-28 05:02 | NUR ---
END OF SHIFT SUMMARY START OF SHIFT PT WAS ALERT AND ORIENTED AND ABLE TO COMMUNICATE NEEDS; HOWEVER, THE SHIFT HAS PROGRESSED PT HAS BEEN VERY CONFUSED AND PARANOID. SEE LAST ENTRY NOTE. CURRENTLY REFUSING CARE INCLUDING MEDICATIONS AND LAB DRAWS. STATES SHE WANTS TO TALK WITH THE DOCTOR FIRST THING THIS MORNING SO SHE CAN GET OUT OF HERE. PT CONTINUES TO BE PARANOID AND MAKING STATEMENTS IN REGARDS TO ALL THE "MOVEMENT IN THE OFFICE" AND THE "DOORS PEOPLE ARE GOING IN AND OUT OF". REASSURED PT THAT THIS IS A HOSPITAL AND THERE ARE OTHER PATIENTS ON THE UNIT; THEREFORE, SHE MAY BE SEEING NURSES GO IN AND OUT OF ROOMS TO CARE FOR OTHER PATIENTS. PT SHOOK HER HEAD "NO" AND SAID "THERE IS SOMETHING JUST NOT RIGHT AND FISHY GOING ON AROUND HERE." VSS AT THIS TIME. WILL CONTINUE TO MONITOR UNTIL REPORT IS HANDED OFF TO ONCOMING RN.
[2019-11-28 09:26] LABS: BASOPHILS ABSOLUTE AUTO 0.04 K/mm3 (0.00-0.23); BASOPHILS PERCENT AUTO 0 % (0-2); EOSINOPHILS ABSOLUTE AUTO 0.27 K/mm3 (0.00-0.68); EOSINOPHILS PERCENT AUTO 2 % (0-6); Hematocrit 30.2 % (33.0-51.0); IMMATURE GRAN ABSOLUTE AUTO 0.12 K/mm3 (0.00-0.10); IMMATURE GRAN PERCENT AUTO 1 % (0-1); LYMPHOCYTES ABSOLUTE AUTO 2.56 K/mm3 (0.84-5.20); LYMPHOCYTES PERCENT AUTO 18 % (21-46); MONOCYTES ABSOLUTE AUTO 1.67 K/mm3 (0.16-1.47); MONOCYTES PERCENT AUTO 12 % (4-13); Mean Corpuscular HGB 24.1 pg (26.0-34.0); Mean Corpuscular HGB Conc 29.8 g/dL (31.5-36.5); Mean Corpuscular Volume 81 fL (80-100); Mean Platelet Volume 10.2 fL (9.1-12.4); NEUTROPHILS ABSOLUTE AUTO 9.92 K/mm3 (1.96-9.15); NEUTROPHILS PERCENT AUTO 68 % (41-73); NRBC ABSOLUTE 0.13 K/mm3 (0.00-0.02); NRBC Auto 0.9 /100 WBC (0.0-0.2); Platelet Count 254 K/mm3 (150-400); RDW Coefficient Variation 21.7 % (11.7-14.2); RDW Standard Deviation 61.1 fL (35.1-46.3); Red Blood Cell Count 3.73 M/mm3 (3.80-5.20); White Blood Cell Count 14.58 K/mm3 (4.00-11.30)
[2019-11-28 09:45] LABS: Bun/Creatinine Ratio 28.1 (12.0-20.0); Calcium, Blood 8.5 mg/dL (8.5-10.1); Creatinine, Blood 1.53 mg/dL (0.40-1.00); Potassium, Blood 4.1 mmol/L (3.5-5.5)
--- NOTE | 2019-11-28 14:44 | NUR ---
CARE ASSUMED ASSESSMENT COMPLETED. PT SITTING UP IN CHAIR EATING BREAKFAST WITHOUT DIFFICULTY, ALERT AND ORIENTED X4, STATES SHE WAS VARY CONFUSED LAST NIGHT BUT IS AWARE THAT HER HALLUCINATIONS WERE NOT REAL. PT DENIES SOB AT REST AND CHEST DISCOMFORT, FINE CRACKLES REMAIN IN BILAT BASES. VSS, HR 70-110 AFIB, CARDIZEM GTT AT 5MG/HR. 1+ EDEMA REMAINS TO BILAT ANKLES AND LEGS, WILL ADMINISTER DIURETICS PER ORDERS. NYSTATIN TO YEAST IN GROIN AND UNDER PANNUS. VSS, WILL CONTINUE TO MONITOR.
--- NOTE | 2019-11-28 14:57 | NUR ---
UPDATE/PCU TRANSFER NOTE PT UP TO [facility] FOR SMALL BM, THEN BACK TO CHAIR. TOLERATED LUNCH WITHOUT DIFFICULTY. WORKED WITH PHYSICAL THERAPY, TOLERATED WELL, NO DESAT, SOB WITH EXERTION MINIMAL. PT REMAINS ON RA WITH SPO2 MID 90'S, FINE CRACKLES REMAIN IN BASES BILAT, DENIES SOB AT REST. CARDIZEM GTT REMAINS AT 5MG/HR, HR 70'S AFIB, VSS. BELONGINGS BROUGHT TO PATIENT BY FAMILY, PT SITTING UP IN CHAIR READING MAGAZINES, DENIES C/O. NO CONFUSION NOTED THIS SHIFT, PT APPROPRIATE AND COOPERATIVE, USING CALL LIGHT APPROPRIATELY. REPORT TO ZULEMA LOVE. PT TO PCU RM 1 AT 1445 WITH CHART, MEDS, AND BELONGINGS.
[2019-11-28 16:45] LABS: Source, Urine Catheter
[2019-11-28 16:52] LABS: Bilirubin, Urine Neg (Neg); Blood, Urine 4+ (Neg); Glucose Qualitative, Urine Neg (Neg); Ketones, Urine Neg (Neg); Leukocyte Esterase, Urine 1+ (Neg); Nitrite, Urine Neg (Neg); Protein, Urine Neg (Neg); Urobilinogen, Urine NORM (Normal)
[2019-11-28 17:03] LABS: Appearance, Urine Clear (Clear); Color, Urine Pale Yellow (P-Yellow)
[2019-11-28 17:04] LABS: Squamous Epithelial Cells Not Seen /hpf (Few); White Blood Cells, Urine 0-2 /hpf (0-5)
[2019-11-28 17:05] LABS: Bacteria Rare /hpf; Hyaline Casts Rare /lpf (0-2)
--- NOTE | 2019-11-28 17:18 | NUR ---
TRANSFER FROM ICU/PCU DAYSHIFT SUMMARY PATIENT ARRIVED TO UNIT VIA WHEELCHAIR - TRANSFERED FROM WHEELCHAIR TO UNIT BED WITH STEADY GAIT. HEART RATE 90'S AFIB PER GENERATION MANAGER WITH NO EVENTS NOTED. RESP E/U ON RA. PATIENT HAS HOME CPAP AT BEDSIDE, CURRENTLY ON WITH CONTINUOUS BIOX IN PLACE. PATIENT DENIES ANY PAIN. SEVERE ABD WOUNDS NOTED UNDER PANUS - MD RM AWARE. WILL CONTINUE TO MONITOR AND REPORT TO NOC SHIFT RN. CALL LIGHT W/I REACH.
--- NOTE | 2019-11-28 23:55 | NUR ---
PT REFUSING MIDNIGHT VITALS. WOKE UP CONFUSED AND ANGRY ABOUT BEING WOKEN UP.
[2019-11-29 04:11] LABS: BASOPHILS ABSOLUTE AUTO 0.04 K/mm3 (0.00-0.23); BASOPHILS PERCENT AUTO 0 % (0-2); EOSINOPHILS ABSOLUTE AUTO 0.48 K/mm3 (0.00-0.68); EOSINOPHILS PERCENT AUTO 3 % (0-6); Hematocrit 32.9 % (33.0-51.0); Hemoglobin 9.7 g/dL (11.5-16.0); IMMATURE GRAN ABSOLUTE AUTO 0.07 K/mm3 (0.00-0.10); IMMATURE GRAN PERCENT AUTO 1 % (0-1); LYMPHOCYTES ABSOLUTE AUTO 2.66 K/mm3 (0.84-5.20); LYMPHOCYTES PERCENT AUTO 19 % (21-46); MONOCYTES ABSOLUTE AUTO 1.54 K/mm3 (0.16-1.47); MONOCYTES PERCENT AUTO 11 % (4-13); Mean Corpuscular HGB 24.3 pg (26.0-34.0); Mean Corpuscular HGB Conc 29.5 g/dL (31.5-36.5); Mean Corpuscular Volume 82 fL (80-100); NEUTROPHILS ABSOLUTE AUTO 9.16 K/mm3 (1.96-9.15); NEUTROPHILS PERCENT AUTO 66 % (41-73); NRBC ABSOLUTE 0.08 K/mm3 (0.00-0.02); NRBC Auto 0.6 /100 WBC (0.0-0.2); Platelet Count 267 K/mm3 (150-400); RDW Coefficient Variation 22.9 % (11.7-14.2); RDW Standard Deviation 64.2 fL (35.1-46.3); White Blood Cell Count 13.95 K/mm3 (4.00-11.30)
[2019-11-29 04:29] LABS: Bun/Creatinine Ratio 27.5 (12.0-20.0); Calcium, Blood 8.7 mg/dL (8.5-10.1); Creatinine, Blood 1.31 mg/dL (0.40-1.00); Potassium, Blood 4.2 mmol/L (3.5-5.5)
--- NOTE | 2019-11-29 05:11 | NUR ---
SHIFT SUMMARY PT SLEEPING IN ROOM COMFORTABLY AT THIS TIME. NO ACUTE CHANGES IN STATUS T/O NIGHT. PT SLEPT WELL. DID WAKE TWICE TO USE RR. PT WAS SLIGHTLY CONFUSED AND AGGITATED UPON WAKING. REQUIRED REORIENTATION TO SPACE AND EVENTS. AFTER SEVERAL MIN PT RETURNS TO BASELINE MENTATION AND BECOMES PLEASENT SELF AGAIN. RESP EVEN UNLABORED ON RA W/ SATS >92% WHILE AWAKE, PT ON CPAP DURING SLEEP SATS >95%. DENIED ANY PAIN OR SOB. PT ABLE TO AMBULATE W/ 1P SBA AND 4WW TO RR. CHI CATH IN PLACE DRAINING TO GRAVITY. PT DENIED OTHER NEEDS. PICC LINE NOTED TO BREE, LINES FLUSHED ALL CAPS CHANGED. CALL LIGHT IN REACH. BED ALARM ON FOR SAFETY.
--- NOTE | 2019-11-29 13:18 | NUR ---
1300 ASSUMED CARE OF PT. REPORT FROM CARMINE POOLE. PT IS ALERT AND ORIENTED AND ABLE TO EXPRESS ANY NEES. SHE IS A SBA TO THE RESTROOM. PT HAS NO COMPLAINTS OF PAIN, SOB, OR NV. CALL LIGHT WITHIN REACH.
--- NOTE | 2019-11-29 18:12 | NUR ---
PT TRANSFERRED FROM ICU AT 1300. SHE IS PLEASANT AND SOMEWHAT CONFUSED AT TIMES. SHE IS ABLE TO AMBULATE TO RESTROOM WITH WALKER. SHE IS ALERT AND ORIENTED AND ABLE TO EXPRESS ANY NEEDS. SHE HAS NO COMPLAINTS, CALL LIGHT WITHIN REACH.
[2019-11-30 05:10] LABS: BASOPHILS ABSOLUTE AUTO 0.04 K/mm3 (0.00-0.23); BASOPHILS PERCENT AUTO 0 % (0-2); EOSINOPHILS ABSOLUTE AUTO 0.41 K/mm3 (0.00-0.68); EOSINOPHILS PERCENT AUTO 4 % (0-6); Hematocrit 31.3 % (33.0-51.0); Hemoglobin 9.2 g/dL (11.5-16.0); IMMATURE GRAN ABSOLUTE AUTO 0.07 K/mm3 (0.00-0.10); IMMATURE GRAN PERCENT AUTO 1 % (0-1); LYMPHOCYTES ABSOLUTE AUTO 2.01 K/mm3 (0.84-5.20); LYMPHOCYTES PERCENT AUTO 18 % (21-46); MONOCYTES ABSOLUTE AUTO 1.37 K/mm3 (0.16-1.47); MONOCYTES PERCENT AUTO 12 % (4-13); Mean Corpuscular HGB 24.2 pg (26.0-34.0); Mean Corpuscular HGB Conc 29.4 g/dL (31.5-36.5); Mean Corpuscular Volume 82 fL (80-100); Mean Platelet Volume 10.6 fL (9.1-12.4); NEUTROPHILS ABSOLUTE AUTO 7.34 K/mm3 (1.96-9.15); NEUTROPHILS PERCENT AUTO 65 % (41-73); NRBC ABSOLUTE 0.03 K/mm3 (0.00-0.02); NRBC Auto 0.3 /100 WBC (0.0-0.2); Platelet Count 215 K/mm3 (150-400); RDW Coefficient Variation 23.8 % (11.7-14.2); RDW Standard Deviation 67.4 fL (35.1-46.3); White Blood Cell Count 11.24 K/mm3 (4.00-11.30)
[2019-11-30 05:29] LABS: Bun/Creatinine Ratio 30.2 (12.0-20.0); Creatinine, Blood 1.16 mg/dL (0.40-1.00); Potassium, Blood 4.3 mmol/L (3.5-5.5)
--- NOTE | 2019-11-30 06:29 | NUR ---
SHIFT SUMMARY PATIENT ALERT BUT HAS A TENDANCY TO BE CONFUSED FROM TIME TO TIME. SHE PREFERS TO SLEEP IN THE RECLINER NEXT TO HER BED AND WEARS HER CPAP WITH 2 L O2 BLEED IN WHILE SLEEPING. TELE IN PLACE AND PATIENT PLACED ON CONTINUOUS BIOX. PICC LINE PATENT AND FLUSHED AND CAPS CHANGED. RECLINER WHEELS LOCKED. CALL LIGHT WITHIN REACH. REPORT GIVEN TO ONCKATHERIN POOLE.
--- NOTE | 2019-11-30 15:14 | NUR ---
PT CALLED LABORER PETROLEUM REFINERY LIGHT, PT REPORTS NOT FEELING RIGHT AND FEELING THOUGH SHE WAS STUCK. PT APPEARS VERY ANXIOUS, SHE REPORTS HE HEART FELT THOUGH IT WAS RACING, TELE AFIB AT 88 AND CUSTOMER ACCOUNT MANAGER REPORTS SHE ONLY WENT UP TO 100. VSS AT THIS TIME. BLOOD ALMOST COMPLETE. 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 THIS RN INSTRUCTED PT TO TAKE A FEW DEEP BREATHS AND ASSISTED INTO THE BATHROOM, PT FELT BETTER AFTER THIS. WILL CONT TO MONITOR.
[2019-11-30 16:39] LABS: Hematocrit 38.3 % (33.0-51.0); Hemoglobin 11.1 g/dL (11.5-16.0)
--- NOTE | 2019-11-30 17:45 | NUR ---
DISCHARGE NOTE: EDUCATION/INSTRUCTIONS GONE OVER WITH PT AND SON KENYON WELL. BOTH DENIES ANY FURTHER QUESTIONS AT THIS TIME. PT TAKEN TO SON VIA W/C. CPAP AND BELONGINGS GIVEN TO SON. TELE D/C'D AND PICC LINE REMOVED BY SLITTING MACHINE OPERATOR HELPER. PT DISCHARGED AT 1730.
== END 2019-11-30 17:29 | disposition home health service (06) | DRG 377 ==
LOC: ER 09:06 → ICUW 12:19 → ICUE 12:19 → ICUW 11-27 19:09 → PCU 11-28 14:55 → MEDS 11-29 12:47
PROVIDERS: Emergency Medicine; Hospitalist; Internal Medicine; Student in an Organized Health Care Education/Training Program; ADMIT Family Medicine
PROC: 30233N1 Transfusion of Nonautologous Red Blood Cells into Peripheral Vein, Percutaneous Approach (ICD-10-PCS; principal; 2019-11-25)
DX: K92.2 Gastrointestinal hemorrhage, unspecified (principal); I50.43 Acute on chronic combined systolic (congestive) and diastolic (congestive) heart failure; I13.0 Hypertensive heart and chronic kidney disease with heart failure and stage 1 through stage 4 chronic kidney disease, or unspecified chronic kidney disease; I48.20 Chronic atrial fibrillation, unspecified; Z68.41 Body mass index [BMI] 40.0-44.9, adult; C85.90 Non-Hodgkin lymphoma, unspecified, unspecified site; E66.2 Morbid (severe) obesity with alveolar hypoventilation; D62 Acute posthemorrhagic anemia; Z87.891 Personal history of nicotine dependence; E78.5 Hyperlipidemia, unspecified; F32.9 Major depressive disorder, single episode, unspecified; F41.9 Anxiety disorder, unspecified; F22 Delusional disorders; R41.0 Disorientation, unspecified; L98.491 Non-pressure chronic ulcer of skin of other sites limited to breakdown of skin; N18.3 Chronic kidney disease, stage 3 (moderate); E11.22 Type 2 diabetes mellitus with diabetic chronic kidney disease; Z79.84 Long term (current) use of oral hypoglycemic drugs
CPT/HCPCS: 36415; 36430; 36569; 51703; 71045; 80048; 80053; 81001; 82947; 83880; 84484; 85014; 85018; 85025; 86850; 86900; 86901; 86923; 87086; 93005; 93010; 94640; 94660; 94762; 97116; 97162; 97165; 97535; 99285-25; A9270; A9270-GY; C1751; J1815; J1940; J7030; J7050; P9016; U0003

== ENCOUNTER 2019-12-25 14:35 | Emergency (ER) | payer MEDICARE ==
[~2019-12-25] VITALS: Ht 154.9 cm; Wt 88.9 kg
[~2019-12-25 14:35] MED LIST changes: -LOPE2C PO
[2019-12-25 15:56] LABS: Albumin, Blood 3.3 g/dL (3.4-5.0); Albumin/Globulin Ratio 0.9 (0.8-1.8); Bilirubin, Total 0.8 mg/dL (0.1-1.0); Bun/Creatinine Ratio 31.4 (12.0-20.0); Calcium, Blood 9.9 mg/dL (8.5-10.1); Creatinine, Blood 1.69 mg/dL (0.40-1.00); Globulin, Blood 3.6 g/dL (2.2-4.0); Potassium, Blood 5.2 mmol/L (3.5-5.5); Total Protein, Blood 6.9 g/dL (6.4-8.2)
[2019-12-25 15:59] LABS: BASOPHILS ABSOLUTE AUTO 0.05 K/mm3 (0.00-0.23); BASOPHILS PERCENT AUTO 1 % (0-2); EOSINOPHILS ABSOLUTE AUTO 0.16 K/mm3 (0.00-0.68); EOSINOPHILS PERCENT AUTO 2 % (0-6); Hematocrit 38.1 % (33.0-51.0); Hemoglobin 11.1 g/dL (11.5-16.0); IMMATURE GRAN ABSOLUTE AUTO 0.03 K/mm3 (0.00-0.10); IMMATURE GRAN PERCENT AUTO 0 % (0-1); LYMPHOCYTES ABSOLUTE AUTO 2.44 K/mm3 (0.84-5.20); LYMPHOCYTES PERCENT AUTO 23 % (21-46); MONOCYTES PERCENT AUTO 10 % (4-13); Mean Corpuscular HGB 24.9 pg (26.0-34.0); Mean Corpuscular HGB Conc 29.1 g/dL (31.5-36.5); Mean Corpuscular Volume 85 fL (80-100); Mean Platelet Volume 10.8 fL (9.1-12.4); NEUTROPHILS ABSOLUTE AUTO 7.06 K/mm3 (1.96-9.15); NEUTROPHILS PERCENT AUTO 65 % (41-73); Platelet Count 179 K/mm3 (150-400); RDW Coefficient Variation 22.8 % (11.7-14.2); RDW Standard Deviation 70.9 fL (35.1-46.3); Red Blood Cell Count 4.46 M/mm3 (3.80-5.20); White Blood Cell Count 10.84 K/mm3 (4.00-11.30)
[2019-12-25] MEDS ORDERED: LOPE2C PO (18:40)
== END 2019-12-25 19:35 | disposition home or self-care (01) ==
LOC: ER 14:35
PROVIDERS: Physician Assistant
DX: I48.91 Unspecified atrial fibrillation (principal); R53.1 Weakness; R19.7 Diarrhea, unspecified; Z88.8 Allergy status to other drugs, medicaments and biological substances; Z79.899 Other long term (current) drug therapy; J44.9 Chronic obstructive pulmonary disease, unspecified; I11.0 Hypertensive heart disease with heart failure; I50.9 Heart failure, unspecified; E11.9 Type 2 diabetes mellitus without complications; Z79.84 Long term (current) use of oral hypoglycemic drugs; Z87.891 Personal history of nicotine dependence
CPT/HCPCS: 36415; 80053; 83690; 85025; 93005; 93010; 96361; 96374; 99285-25; J7030

== ENCOUNTER → 2019-12-25 | Outpatient (CLI) | payer MEDICARE ==
[~2019-12-25] MED LIST changes: +ALBU90OI61 INH; +FURO40 PO; +Flovent Disku100 MCG INH; +LOPE2C PO; +METF500C PO; +METO50ER PO; +Neurontin 100100 MG PO; +OLMESARTAN MEDO20 MG PO; +POTA10T PO; +Prozac20 MG PO; +TIOT18 INH; +XARELTO15 MG PO
[2019-12-25 15:37] LABS: Adenovirus F 40/41 Not Detected (NOT DETECT); Astrovirus Not Detected (NOT DETECT); Campylobacter Sp Not Detected (NOT DETECT); Cryptosporidium Not Detected (NOT DETECT); Cyclospora Cayetanensis Not Detected (NOT DETECT); E. Coli O157 Not Detected (NOT DETECT); Entamoeba Histolytica Not Detected (NOT DETECT); Enteroaggregative E. coli-EAEC Not Detected (NOT DETECT); Enteropathogenic E. coli-EPEC Not Detected (NOT DETECT); Enterotoxigenic E. coli-ETEC Not Detected (NOT DETECT); Giardia Lamblia Not Detected (NOT DETECT); Norovirus GI/GII Not Detected (NOT DETECT); Plesiomonas Shigelloides Not Detected (NOT DETECT); Rotavirus A Not Detected (NOT DETECT); Salmonella Sp Not Detected (NOT DETECT); Sapovirus Not Detected (NOT DETECT); Shiga Toxin-prod E. coli-STEC Not Detected (NOT DETECT); Shigella/Enteroin E. coli-EIEC Not Detected (NOT DETECT); Vibrio Cholerae Not Detected (NOT DETECT); Vibrio Sp Not Detected (NOT DETECT); Yersinia Enterocolitica Not Detected (NOT DETECT)
== END | disposition home or self-care (01) ==
LOC: LAB 12:22 → LAB SHORT 12:22
PROVIDERS: Internal Medicine Gastroenterology
DX: R19.7 Diarrhea, unspecified (principal)
CPT/HCPCS: 0097U

== ENCOUNTER 2020-01-02 11:14 | Observation (INO) | payer MEDICARE ==
[~2020-01-02] VITALS: Ht 154.9 cm; Wt 89.5 kg
[~2020-01-02 11:14] MED LIST changes: -ALBU90OI61 INH; -FURO40 PO; -Flovent Disku100 MCG INH; +LOPE2C PO; -METF500C PO; -METO50ER PO; -Neurontin 100100 MG PO; -POTA10T PO; -Prozac20 MG PO; -TIOT18 INH
[2020-01-02 12:56] LABS: BASOPHILS ABSOLUTE AUTO 0.02 K/mm3 (0.00-0.23); BASOPHILS PERCENT AUTO 0 % (0-2); EOSINOPHILS ABSOLUTE AUTO 0.12 K/mm3 (0.00-0.68); EOSINOPHILS PERCENT AUTO 1 % (0-6); Hematocrit 34.7 % (33.0-51.0); Hemoglobin 10.5 g/dL (11.5-16.0); IMMATURE GRAN ABSOLUTE AUTO 0.04 K/mm3 (0.00-0.10); IMMATURE GRAN PERCENT AUTO 0 % (0-1); LYMPHOCYTES ABSOLUTE AUTO 1.68 K/mm3 (0.84-5.20); LYMPHOCYTES PERCENT AUTO 15 % (21-46); MONOCYTES ABSOLUTE AUTO 1.12 K/mm3 (0.16-1.47); MONOCYTES PERCENT AUTO 10 % (4-13); Mean Corpuscular HGB 25.7 pg (26.0-34.0); Mean Corpuscular HGB Conc 30.3 g/dL (31.5-36.5); Mean Corpuscular Volume 85 fL (80-100); Mean Platelet Volume 10.9 fL (9.1-12.4); NEUTROPHILS ABSOLUTE AUTO 7.99 K/mm3 (1.96-9.15); NEUTROPHILS PERCENT AUTO 73 % (41-73); Platelet Count 143 K/mm3 (150-400); RDW Coefficient Variation 23.4 % (11.7-14.2); RDW Standard Deviation 71.5 fL (35.1-46.3); Red Blood Cell Count 4.09 M/mm3 (3.80-5.20); White Blood Cell Count 10.97 K/mm3 (4.00-11.30)
[2020-01-02] MEDS ORDERED: METF500C PO (13:03)
[2020-01-02] MEDS ORDERED: BUME1 PO (13:04)
[2020-01-02] MEDS ORDERED: Neurontin 100100 MG PO (13:05)
[2020-01-02] MEDS ORDERED: NYSTOP15 GM TOP (13:06)
[2020-01-02] MEDS ORDERED: POTA10T PO (13:08)
[2020-01-02] MEDS ORDERED: Prozac20 MG PO (13:09)
[2020-01-02] MEDS ORDERED: Lovastatin20 MG PO (13:10)
[2020-01-02] MEDS ORDERED: TIOT18 INH (13:10)
[2020-01-02] MEDS ORDERED: ALBU90OI61 INH (13:10)
[2020-01-02] MEDS ORDERED: Flovent Disku100 MCG INH (13:12)
[2020-01-02] MEDS ORDERED: XARELTO15 M1 PO (13:14)
[2020-01-02] MEDS ORDERED: FURO40 PO (13:16)
[2020-01-02 13:17] LABS: Alanine Aminotransfer (ALT/SGP 23 U/L (12-78); Albumin, Blood 3.2 g/dL (3.4-5.0); Albumin/Globulin Ratio 0.9 (0.8-1.8); Alk Phos 116 U/L (50-136); Anion Gap 5 mmol/L (6-16); Aspartate Aminotrans (AST/SGOT 16 U/L (12-37); Bilirubin, Total 0.8 mg/dL (0.1-1.0); Blood Urea Nitrogen 38 mg/dL (8-24); Bun/Creatinine Ratio 28.4 (12.0-20.0); CO2, Blood 31 mmol/L (21-32); Calcium, Blood 9.7 mg/dL (8.5-10.1); Chloride, Blood 108 mmol/L (98-108); Creatinine, Blood 1.34 mg/dL (0.40-1.00); Globulin, Blood 3.4 g/dL (2.2-4.0); Glomerular Filtration Rate 40 (60-); Glucose, Blood 156 mg/dL (70-99); Potassium, Blood 4.1 mmol/L (3.5-5.5); Sodium, Blood 144 mmol/L (136-145); Total Protein, Blood 6.6 g/dL (6.4-8.2); Troponin I <0.015 ng/mL (0.000-0.040)
[2020-01-02] MEDS ORDERED: METO25ER PO (13:17)
[2020-01-02 13:35] LABS: Source, Urine Catheter
[2020-01-02 13:39] LABS: Bilirubin, Urine Neg (Neg); Blood, Urine 5+ (Neg); Glucose Qualitative, Urine Neg (Neg); Ketones, Urine Neg (Neg); Leukocyte Esterase, Urine 2+ (Neg); Nitrite, Urine Neg (Neg); Protein, Urine Neg (Neg); Urobilinogen, Urine NORM (Normal)
[2020-01-02 13:59] LABS: Appearance, Urine Clear (Clear); Color, Urine Pale Yellow (P-Yellow)
[2020-01-02 14:00] LABS: Bacteria Rare /hpf; Squamous Epithelial Cells Rare /hpf (Few)
--- NOTE | 2020-01-02 19:28 | NUR ---
shift summary: Pt arrived to room u13 at around 1730. VSS. LS clear but dim in bases. HR irregular. Pt denies pain, SOB, CP or dizziness. IV cardizem was running at 5mg/hr. Increased rate to 10mg/hr for HR 120's. Pt was oriented to room, unit, call light and POC. Pt went for CT at around 1830. Report was given to night RN. Stable at end of shift.
[2020-01-03 04:56] LABS: BASOPHILS ABSOLUTE AUTO 0.02 K/mm3 (0.00-0.23); BASOPHILS PERCENT AUTO 0 % (0-2); EOSINOPHILS ABSOLUTE AUTO 0.19 K/mm3 (0.00-0.68); EOSINOPHILS PERCENT AUTO 2 % (0-6); Hematocrit 34.2 % (33.0-51.0); Hemoglobin 10.3 g/dL (11.5-16.0); IMMATURE GRAN ABSOLUTE AUTO 0.03 K/mm3 (0.00-0.10); IMMATURE GRAN PERCENT AUTO 0 % (0-1); LYMPHOCYTES ABSOLUTE AUTO 1.69 K/mm3 (0.84-5.20); LYMPHOCYTES PERCENT AUTO 18 % (21-46); MONOCYTES ABSOLUTE AUTO 1.06 K/mm3 (0.16-1.47); MONOCYTES PERCENT AUTO 11 % (4-13); Mean Corpuscular HGB 25.4 pg (26.0-34.0); Mean Corpuscular HGB Conc 30.1 g/dL (31.5-36.5); Mean Corpuscular Volume 84 fL (80-100); NEUTROPHILS ABSOLUTE AUTO 6.57 K/mm3 (1.96-9.15); NEUTROPHILS PERCENT AUTO 69 % (41-73); Platelet Count 139 K/mm3 (150-400); RDW Coefficient Variation 23.2 % (11.7-14.2); RDW Standard Deviation 70.7 fL (35.1-46.3); Red Blood Cell Count 4.06 M/mm3 (3.80-5.20); White Blood Cell Count 9.56 K/mm3 (4.00-11.30)
[2020-01-03 05:01] LABS: Mean Platelet Volume 10.7 fL (9.1-12.4)
[2020-01-03 05:11] LABS: Albumin, Blood 2.7 g/dL (3.4-5.0); Anion Gap 6 mmol/L (6-16); Blood Urea Nitrogen 29 mg/dL (8-24); Bun/Creatinine Ratio 25.4 (12.0-20.0); CO2, Blood 30 mmol/L (21-32); Chloride, Blood 107 mmol/L (98-108); Creatinine, Blood 1.14 mg/dL (0.40-1.00); Glomerular Filtration Rate 49 (60-); Glucose, Blood 95 mg/dL (70-99); Magnesium, Blood 1.2 mg/dL (1.6-2.4); Phosphorus, Blood 2.4 mg/dL (2.5-4.9); Potassium, Blood 3.7 mmol/L (3.5-5.5); Sodium, Blood 143 mmol/L (136-145)
--- NOTE | 2020-01-03 06:05 | NUR ---
PATIENT ALERT AND ORIENTED, COMPLAINING OF ABDOMINAL DISCOMFORT ALONG WITH NAUSEA. PATIENT STATED THAT SHE HAS HAD NO BOWEL MOVEMENT SINCE SATURDAY. PATIENT ON FULL LIQUID DIET BUT UNABLE TO FINISH MUCH OF HER MEALS AND HAS HAD POOR INTAKE SINCE ADMISSION. CREATININE STILL ELEVATED, IV FLUIDS INFUSING PER ORDER. NORMAL SINUS RHYTHM ON MONITOR. NEEDING ASSISTANCE X1 TO BEDISDE COMMODE. PATIENT HAD SEVERAL BOWEL MOVEMENTS TODAY. STATED THAT SHE MORE COMFORTABLE AFTER DOING SO. STOOL SAMPLE SENT TO TEST FOR FECAL OCCULT BLOOD. CALL LIGHT WITHIN REACH. WILL CONTINUE TO MONITOR UNTIL END OF SHIFT.
--- NOTE | 2020-01-03 06:24 | NUR ---
ASSUMED CARE OF PATIENT AT 1915. PATIENT ALERT AND ORIENTED. CONTROLLED AFIB ON THE MONITOR. CARDIZEM GTT TURNED OFF, HEART RATE IN 70'S. LUNG SOUNDS CLEAR. URINE SHOWS POSITIVE URINARY INFECTION, CURRENTLY ON CIPRO. NO COMPLAINTS OF PAIN, DIZZINESS OR NAUSEA. PATIENT AMBULATING WITH ASSISTANCE TO THE BATHROOM. CALL LIGHT WITHIN REACH. WILL CONTINUE TO MONITOR UNTIL END OF SHIFT.
[2020-01-03] MEDS ORDERED: FURO40 PO (12:36)
[2020-01-03] MEDS ORDERED: Cipro250 MG PO (12:36)
--- NOTE | 2020-01-03 15:15 | NUR ---
Pt and her son were given verbal and written discharge insturctions. Verbalized understanding, denies questions. IV was discontinued and cath intact. Pt was given oral cipro prior to discharge, next dose will be tomorrow am after her son was able to order picker RX. Pt left via w/c. Stable at time of discharge.
== END 2020-01-03 15:12 | disposition home or self-care (01) ==
LOC: ER 11:14 → PCU 11:15
PROVIDERS: Emergency Medicine; ADMIT Internal Medicine Gastroenterology
DX: I48.20 Chronic atrial fibrillation, unspecified (principal); N39.0 Urinary tract infection, site not specified; R31.9 Hematuria, unspecified; D64.89 Other specified anemias; I11.0 Hypertensive heart disease with heart failure; I50.20 Unspecified systolic (congestive) heart failure; E11.40 Type 2 diabetes mellitus with diabetic neuropathy, unspecified; E78.00 Pure hypercholesterolemia, unspecified; C85.10 Unspecified B-cell lymphoma, unspecified site; J44.9 Chronic obstructive pulmonary disease, unspecified; F32.9 Major depressive disorder, single episode, unspecified; Z79.899 Other long term (current) drug therapy
CPT/HCPCS: 36415; 71045; 74176; 80053; 80069; 81001; 82947; 83735; 83880; 84484; 85025; 87077; 87086; 87186; 93005; 93010; 94640; 94760; 96365; 96366; 96375; 96376; 99284-25; A9270-GY; G0378; J3475

== ENCOUNTER → 2020-03-04 | Outpatient (CLI) | payer MEDICARE ==
[~2020-03-04] MED LIST changes: +ALBU90OI61 INH; +Cipro250 MG PO; +FURO40 PO; +Flovent Disku100 MCG INH; +METF500C PO; +METO25ER PO; +NYSTOP15 GM TOP; +Neurontin 100100 MG PO; +POTA10T PO; +Prozac20 MG PO; +TIOT18 INH; +XARELTO15 M1 PO
== END | disposition home or self-care (01) ==
LOC: LAB SHORT 13:57 → LAB EV 13:57
DX: N39.0 Urinary tract infection, site not specified (principal)
CPT/HCPCS: 87077; 87086; 87186

== ENCOUNTER 2020-05-28 09:37 | Emergency (ER) | payer MEDICARE ==
[~2020-05-28] VITALS: Ht 154.9 cm; Wt 81.7 kg
[2020-05-28 10:00] LABS: BASOPHILS ABSOLUTE AUTO 0.03 K/mm3 (0.00-0.23); BASOPHILS PERCENT AUTO 0 % (0-2); EOSINOPHILS ABSOLUTE AUTO 0.21 K/mm3 (0.00-0.68); EOSINOPHILS PERCENT AUTO 2 % (0-6); Hematocrit 34.4 % (33.0-51.0); Hemoglobin 10.2 g/dL (11.5-16.0); IMMATURE GRAN ABSOLUTE AUTO 0.05 K/mm3 (0.00-0.10); IMMATURE GRAN PERCENT AUTO 1 % (0-1); LYMPHOCYTES ABSOLUTE AUTO 3.28 K/mm3 (0.84-5.20); LYMPHOCYTES PERCENT AUTO 32 % (21-46); MONOCYTES ABSOLUTE AUTO 1.18 K/mm3 (0.16-1.47); MONOCYTES PERCENT AUTO 11 % (4-13); Mean Corpuscular HGB 27.7 pg (26.0-34.0); Mean Corpuscular HGB Conc 29.7 g/dL (31.5-36.5); Mean Corpuscular Volume 94 fL (80-100); NEUTROPHILS ABSOLUTE AUTO 5.67 K/mm3 (1.96-9.15); NEUTROPHILS PERCENT AUTO 54 % (41-73); RDW Coefficient Variation 16.5 % (11.7-14.2); RDW Standard Deviation 55.8 fL (35.1-46.3); Red Blood Cell Count 3.68 M/mm3 (3.80-5.20); White Blood Cell Count 10.42 K/mm3 (4.00-11.30)
[2020-05-28 10:02] LABS: Mean Platelet Volume 10.8 fL (9.1-12.4); Platelet Count 159 K/mm3 (150-400)
[2020-05-28 10:19] LABS: Albumin, Blood 3.1 g/dL (3.4-5.0); Albumin/Globulin Ratio 0.9 (0.8-1.8); Bilirubin, Total 0.7 mg/dL (0.1-1.0); Bun/Creatinine Ratio 19.6 (12.0-20.0); Calcium, Blood 10.3 mg/dL (8.5-10.1); Creatinine, Blood 1.38 mg/dL (0.40-1.00); Globulin, Blood 3.6 g/dL (2.2-4.0); Potassium, Blood 4.6 mmol/L (3.5-5.5); Total Protein, Blood 6.7 g/dL (6.4-8.2)
[2020-05-28] MEDS ORDERED: HYDR1TAB94 PO (14:05)
== END 2020-05-28 14:27 | disposition home or self-care (01) ==
LOC: ER 09:37
PROVIDERS: Emergency Medicine
DX: S00.83XA Contusion of other part of head, initial encounter (principal); S70.02XA Contusion of left hip, initial encounter; I10 Essential (primary) hypertension; J44.9 Chronic obstructive pulmonary disease, unspecified; E11.9 Type 2 diabetes mellitus without complications; Z88.8 Allergy status to other drugs, medicaments and biological substances; Z79.84 Long term (current) use of oral hypoglycemic drugs; Z79.899 Other long term (current) drug therapy; Z87.891 Personal history of nicotine dependence; W18.30XA Fall on same level, unspecified, initial encounter
CPT/HCPCS: 70450; 72192; 73502; 80053; 85025; 93005; 93010; 96374-59; 99285-25; J3010

== ENCOUNTER → 2020-07-26 | Outpatient (CLI) | payer MEDICARE ==
[~2020-07-26] MED LIST changes: +AMIODARONE HCL200 M1 PO; +Cranberry400 MG PO; +Docusate Sodiu250 MG PO; +FERROUS SULFATE 142 MG PO; +HYDR1TAB94 PO; +LEVEMIR FL100 UNIT/2 SC; +LEVO-T100 MC1 PO; +Lisinopril2.5 MG PO; +MIRALAX17 GM PO; +OMEP20ER PO; +ROSUVASTATIN CAL5 MG PO; +VITAMIN C125 MG PO; +Vitamin D2000 UNIT PO
[2020-07-26 12:32] LABS: BASOPHILS ABSOLUTE AUTO 0.03 K/mm3 (0.00-0.23); BASOPHILS PERCENT AUTO 0 % (0-2); EOSINOPHILS ABSOLUTE AUTO 0.28 K/mm3 (0.00-0.68); EOSINOPHILS PERCENT AUTO 3 % (0-6); Hematocrit 35.2 % (33.0-51.0); Hemoglobin 10.2 g/dL (11.5-16.0); IMMATURE GRAN ABSOLUTE AUTO 0.02 K/mm3 (0.00-0.10); IMMATURE GRAN PERCENT AUTO 0 % (0-1); LYMPHOCYTES ABSOLUTE AUTO 3.15 K/mm3 (0.84-5.20); LYMPHOCYTES PERCENT AUTO 37 % (21-46); MONOCYTES ABSOLUTE AUTO 1.05 K/mm3 (0.16-1.47); MONOCYTES PERCENT AUTO 12 % (4-13); Mean Corpuscular HGB 25.7 pg (26.0-34.0); Mean Corpuscular Volume 89 fL (80-100); Mean Platelet Volume 10.5 fL (9.1-12.4); NEUTROPHILS ABSOLUTE AUTO 3.99 K/mm3 (1.96-9.15); NEUTROPHILS PERCENT AUTO 47 % (41-73); Platelet Count 169 K/mm3 (150-400); RDW Coefficient Variation 16.2 % (11.7-14.2); Red Blood Cell Count 3.97 M/mm3 (3.80-5.20); White Blood Cell Count 8.52 K/mm3 (4.00-11.30)
[2020-07-26 13:05] LABS: Albumin, Blood 2.5 g/dL (3.4-5.0); Anion Gap 7 mmol/L (6-16); Blood Urea Nitrogen 24 mg/dL (8-24); Bun/Creatinine Ratio 22.4 (12.0-20.0); CO2, Blood 29 mmol/L (21-32); Calcium, Blood 9.6 mg/dL (8.5-10.1); Chloride, Blood 101 mmol/L (98-108); Creatinine, Blood 1.07 mg/dL (0.40-1.00); Glomerular Filtration Rate 52 (60-); Glucose, Blood 86 mg/dL (70-99); Phosphorus, Blood 3.5 mg/dL (2.5-4.9); Potassium, Blood 3.7 mmol/L (3.5-5.5); Sodium, Blood 137 mmol/L (136-145)
== END | disposition home or self-care (01) ==
LOC: LAB 10:00
PROVIDERS: Internal Medicine
DX: N18.32 Chronic kidney disease, stage 3b (principal); D63.1 Anemia in chronic kidney disease; R41.3 Other amnesia; R60.0 Localized edema
CPT/HCPCS: 80069; 83880; 84443; 85025

== ENCOUNTER → 2020-08-22 | Outpatient (CLI) | payer MEDICARE ==
[2020-08-23 12:11] LABS: Source, Urine Voided
[2020-08-23 13:28] LABS: Appearance, Urine Hazy (Clear); Bilirubin, Urine Neg (Neg); Blood, Urine 2+ (Neg); Color, Urine Yellow (P-Yellow); Glucose Qualitative, Urine Neg (Neg); Ketones, Urine Neg (Neg); Leukocyte Esterase, Urine 3+ (Neg); Nitrite, Urine Neg (Neg); Protein, Urine 1+ (Neg); Urobilinogen, Urine NORM (Normal)
[2020-08-23 13:43] LABS: Bacteria Rare /hpf; Squamous Epithelial Cells Few /hpf (Few)
== END | disposition home or self-care (01) ==
LOC: LAB 08:30 → LAB SHORT 08:30
PROVIDERS: Physician Assistant Medical
DX: R30.9 Painful micturition, unspecified (principal)
CPT/HCPCS: 81001; 87077; 87086; 87186

== ENCOUNTER → 2020-08-25 | Outpatient (CLI) | payer MEDICARE ==
[2020-08-25 18:06] LABS: BASOPHILS ABSOLUTE AUTO 0.04 K/mm3 (0.00-0.23); BASOPHILS PERCENT AUTO 1 % (0-2); EOSINOPHILS ABSOLUTE AUTO 0.27 K/mm3 (0.00-0.68); EOSINOPHILS PERCENT AUTO 3 % (0-6); Hematocrit 32.1 % (33.0-51.0); Hemoglobin 9.7 g/dL (11.5-16.0); IMMATURE GRAN ABSOLUTE AUTO 0.02 K/mm3 (0.00-0.10); IMMATURE GRAN PERCENT AUTO 0 % (0-1); LYMPHOCYTES ABSOLUTE AUTO 2.51 K/mm3 (0.84-5.20); LYMPHOCYTES PERCENT AUTO 30 % (21-46); MONOCYTES PERCENT AUTO 12 % (4-13); Mean Corpuscular HGB 26.1 pg (26.0-34.0); Mean Corpuscular HGB Conc 30.2 g/dL (31.5-36.5); Mean Corpuscular Volume 87 fL (80-100); Mean Platelet Volume 10.4 fL (9.1-12.4); NEUTROPHILS ABSOLUTE AUTO 4.67 K/mm3 (1.96-9.15); NEUTROPHILS PERCENT AUTO 55 % (41-73); Platelet Count 159 K/mm3 (150-400); RDW Coefficient Variation 18.3 % (11.7-14.2); RDW Standard Deviation 57.4 fL (35.1-46.3); Red Blood Cell Count 3.71 M/mm3 (3.80-5.20); White Blood Cell Count 8.51 K/mm3 (4.00-11.30)
[2020-08-25 18:36] LABS: Albumin, Blood 3.1 g/dL (3.4-5.0); Anion Gap 3 mmol/L (6-16); Blood Urea Nitrogen 29 mg/dL (8-24); Bun/Creatinine Ratio 27.6 (12.0-20.0); CO2, Blood 34 mmol/L (21-32); Calcium, Blood 9.9 mg/dL (8.5-10.1); Chloride, Blood 103 mmol/L (98-108); Creatinine, Blood 1.05 mg/dL (0.40-1.00); Glomerular Filtration Rate 53 (60-); Glucose, Blood 115 mg/dL (70-99); Phosphorus, Blood 3.5 mg/dL (2.5-4.9); Potassium, Blood 3.7 mmol/L (3.5-5.5); Sodium, Blood 140 mmol/L (136-145)
== END | disposition home or self-care (01) ==
LOC: LAB 13:20 → LAB SHORT 13:20
PROVIDERS: Family Medicine
DX: I13.0 Hypertensive heart and chronic kidney disease with heart failure and stage 1 through stage 4 chronic kidney disease, or unspecified chronic kidney disease (principal); I50.9 Heart failure, unspecified; N18.9 Chronic kidney disease, unspecified; D63.1 Anemia in chronic kidney disease; D50.0 Iron deficiency anemia secondary to blood loss (chronic)
CPT/HCPCS: 80069; 85025

== ENCOUNTER → 2020-09-28 | Outpatient (CLI) | payer MEDICARE ==
[2020-09-28 19:23] LABS: Calcium, Blood 9.5 mg/dL (8.5-10.1); Creatinine, Blood 1.25 mg/dL (0.40-1.00); Potassium, Blood 3.9 mmol/L (3.5-5.5)
[2020-09-28 19:27] LABS: Thyroid Stimulating Hormone 11.1 uIU/mL (0.360-4.800)
== END | disposition home or self-care (01) ==
LOC: LAB SHORT 18:51 → LAB 18:51
PROVIDERS: Physician Assistant Medical
DX: E03.9 Hypothyroidism, unspecified (principal); N18.30 Chronic kidney disease, stage 3 unspecified
CPT/HCPCS: 80048; 84443

== ENCOUNTER 2020-10-14 14:34 | Inpatient (IN) | payer MEDICARE ==
[~2020-10-14] VITALS: Ht 157.5 cm; Wt 94.1 kg
[~2020-10-14 14:34] MED LIST changes: -ALBU90OI61 INH; -AMIODARONE HCL200 M1 PO; -Cranberry400 MG PO; -Docusate Sodiu250 MG PO; -FERROUS SULFATE 142 MG PO; -Flovent Disku100 MCG INH; -LEVEMIR FL100 UNIT/2 SC; -LEVO-T100 MC1 PO; -Lisinopril2.5 MG PO; -METO25ER PO; -MIRALAX17 GM PO; -Neurontin 100100 MG PO; -OMEP20ER PO; -POTA10T PO; -Prozac20 MG PO; -ROSUVASTATIN CAL5 MG PO; -TIOT18 INH; -VITAMIN C125 MG PO; -Vitamin D2000 UNIT PO
[2020-10-14 15:09] LABS: BASOPHILS ABSOLUTE AUTO 0.03 K/mm3 (0.00-0.23); BASOPHILS PERCENT AUTO 0 % (0-2); EOSINOPHILS ABSOLUTE AUTO 0.19 K/mm3 (0.00-0.68); EOSINOPHILS PERCENT AUTO 2 % (0-6); Hematocrit 33.5 % (33.0-51.0); Hemoglobin 10.2 g/dL (11.5-16.0); IMMATURE GRAN ABSOLUTE AUTO 0.06 K/mm3 (0.00-0.10); IMMATURE GRAN PERCENT AUTO 1 % (0-1); LYMPHOCYTES ABSOLUTE AUTO 2.21 K/mm3 (0.84-5.20); LYMPHOCYTES PERCENT AUTO 25 % (21-46); MONOCYTES ABSOLUTE AUTO 1.25 K/mm3 (0.16-1.47); MONOCYTES PERCENT AUTO 14 % (4-13); Mean Corpuscular HGB 27.5 pg (26.0-34.0); Mean Corpuscular HGB Conc 30.4 g/dL (31.5-36.5); Mean Corpuscular Volume 90 fL (80-100); Mean Platelet Volume 10.7 fL (9.1-12.4); NEUTROPHILS ABSOLUTE AUTO 5.15 K/mm3 (1.96-9.15); NEUTROPHILS PERCENT AUTO 58 % (41-73); Platelet Count 130 K/mm3 (150-400); RDW Coefficient Variation 22.1 % (11.7-14.2); RDW Standard Deviation 71.7 fL (35.1-46.3); Red Blood Cell Count 3.71 M/mm3 (3.80-5.20); White Blood Cell Count 8.89 K/mm3 (4.00-11.30)
[2020-10-14 15:31] LABS: Albumin, Blood 2.7 g/dL (3.4-5.0); Albumin/Globulin Ratio 0.7 (0.8-1.8); Bilirubin, Total 0.7 mg/dL (0.1-1.0); Bun/Creatinine Ratio 23.8 (12.0-20.0); Calcium, Blood 9.6 mg/dL (8.5-10.1); Creatinine, Blood 1.22 mg/dL (0.40-1.00); Globulin, Blood 3.8 g/dL (2.2-4.0); Potassium, Blood 3.7 mmol/L (3.5-5.5); Total Protein, Blood 6.5 g/dL (6.4-8.2); Troponin I 0.018 ng/mL (0.000-0.040)
[2020-10-14 19:18] LABS: Source, Urine Voided
[2020-10-14 19:21] LABS: Bilirubin, Urine Neg (Neg); Blood, Urine Neg (Neg); Glucose Qualitative, Urine Neg (Neg); Ketones, Urine Neg (Neg); Leukocyte Esterase, Urine Neg (Neg); Nitrite, Urine Neg (Neg); Protein, Urine Neg (Neg); Specific Gravity, Urine 1.015 (1.003-1.022); Urobilinogen, Urine NORM (Normal)
[2020-10-14 19:28] LABS: Appearance, Urine Clear (Clear); Color, Urine Pale Yellow (P-Yellow)
[2020-10-14] MEDS ORDERED: LEVO-T100 MC1 PO (20:43)
[2020-10-14] MEDS ORDERED: TIOT18 INH (20:44)
[2020-10-14] MEDS ORDERED: Neurontin 100100 MG PO (20:44)
[2020-10-14] MEDS ORDERED: POTA10T PO ×2 (20:45→21:43)
[2020-10-14] MEDS ORDERED: AMIODARONE HCL200 M1 PO (20:45)
[2020-10-14] MEDS ORDERED: METO25ER PO (20:46)
[2020-10-14] MEDS ORDERED: TORSE20 PO (20:52)
[2020-10-14] MEDS ORDERED: ROSUVASTATIN CAL5 MG PO (20:53)
[2020-10-14] MEDS ORDERED: LEVEMIR FL100 UNIT/2 SC (20:53)
[2020-10-14 21:03] LABS: Influenza A, PCR NEGATIVE (NEGATIVE); Influenza B, PCR NEGATIVE (NEGATIVE); Resp Syncytial Virus, PCR NEGATIVE (NEGATIVE); SARS-Cov-2 (COVID-19) PCR, MMC NEGATIVE (NEGATIVE)
[2020-10-14] MEDS ORDERED: ALBU90OI61 INH (21:09)
[2020-10-14] MEDS ORDERED: Prozac20 MG PO (21:44)
[2020-10-14] MEDS ORDERED: Flovent Disku100 MCG INH (21:45)
[2020-10-14] MEDS ORDERED: OMEP20ER PO (21:46)
[2020-10-14] MEDS ORDERED: Vitamin D2000 UNIT PO (21:48)
[2020-10-14] MEDS ORDERED: VITAMIN C125 MG PO (21:48)
[2020-10-14] MEDS ORDERED: MIRALAX17 GM PO (21:49)
[2020-10-14] MEDS ORDERED: Docusate Sodiu250 MG PO (21:49)
[2020-10-14] MEDS ORDERED: Cranberry400 MG PO (21:50)
[2020-10-14] MEDS ORDERED: FERROUS SULFATE 142 MG PO (22:53)
[2020-10-14 23:27] LABS: Troponin I 0.017 ng/mL (0.000-0.040)
--- NOTE | 2020-10-15 06:12 | NUR ---
PT ADMIT TO ROOM 301 THIS SHIFT, PT IS A/O BUT FORGETFUL, WEAK, CBG AC/HS, TELE MONITOR IN AFIB. PT PREFERS TO TAKE HER MED PO MEDS IN APPLESAUCE. ATTENDS DUE TO LASIX GIVEN THIS SHIFT.
[2020-10-15 07:18] LABS: BASOPHILS ABSOLUTE AUTO 0.03 K/mm3 (0.00-0.23); BASOPHILS PERCENT AUTO 0 % (0-2); EOSINOPHILS ABSOLUTE AUTO 0.25 K/mm3 (0.00-0.68); EOSINOPHILS PERCENT AUTO 3 % (0-6); Hematocrit 30.8 % (33.0-51.0); Hemoglobin 9.2 g/dL (11.5-16.0); IMMATURE GRAN ABSOLUTE AUTO 0.02 K/mm3 (0.00-0.10); IMMATURE GRAN PERCENT AUTO 0 % (0-1); LYMPHOCYTES ABSOLUTE AUTO 1.99 K/mm3 (0.84-5.20); LYMPHOCYTES PERCENT AUTO 26 % (21-46); MONOCYTES ABSOLUTE AUTO 1.13 K/mm3 (0.16-1.47); MONOCYTES PERCENT AUTO 15 % (4-13); Mean Corpuscular HGB 27.5 pg (26.0-34.0); Mean Corpuscular HGB Conc 29.9 g/dL (31.5-36.5); Mean Corpuscular Volume 92 fL (80-100); Mean Platelet Volume 9.8 fL (9.1-12.4); NEUTROPHILS ABSOLUTE AUTO 4.33 K/mm3 (1.96-9.15); NEUTROPHILS PERCENT AUTO 56 % (41-73); Platelet Count 130 K/mm3 (150-400); RDW Coefficient Variation 21.5 % (11.7-14.2); RDW Standard Deviation 72.4 fL (35.1-46.3); Red Blood Cell Count 3.34 M/mm3 (3.80-5.20); White Blood Cell Count 7.75 K/mm3 (4.00-11.30)
[2020-10-15 07:41] LABS: Albumin, Blood 2.6 g/dL (3.4-5.0); Albumin/Globulin Ratio 0.8 (0.8-1.8); Bilirubin, Total 0.6 mg/dL (0.1-1.0); Bun/Creatinine Ratio 22.3 (12.0-20.0); Calcium, Blood 9.4 mg/dL (8.5-10.1); Creatinine, Blood 1.21 mg/dL (0.40-1.00); Globulin, Blood 3.3 g/dL (2.2-4.0); Potassium, Blood 3.2 mmol/L (3.5-5.5); Total Protein, Blood 5.9 g/dL (6.4-8.2); Troponin I 0.018 ng/mL (0.000-0.040)
--- NOTE | 2020-10-15 16:04 | NUR ---
ECHOCARDIOGRAM COMPLETED
--- NOTE | 2020-10-15 17:48 | NUR ---
SHIFT SUMMARY: NO ACUTE EVENTS. DENIED PAIN. NO EVENTS ON TELEMETRY. CARDIAC ECHO COMPLETE. OXYGEN HAD BEEN D/C'D, BUT A SPOT CHECK BY RT SHOWED O2 SAT 85% ON RA; O2 PLACED AT 2 L/MIN NC WITH RESULTING O2 SAT 95%. PATIENT STATED SHE HAS CPAP AT HOME, BUT CANNOT TOLERATE IT D/T CLAUSTROPHOBIA, HAS OXYGEN CONCENTRATOR BUT NO WAY TO DELIVER O2 EXCEPT FOR CPAP. INCONTINENT OF BLADDER, WEARING ATTENDS. SON KENYON ([phone] CELL-CALL THIS NUMBER FIRST) IS CONCERNED THAT PATIENT IS TOO WEAK TO RETURN HOME; MAY BENEFIT FROM PT/OT EVALUATIONS, POSSIBLE REHAB. WOULD LIKE PROVIDER TO CALL TO GIVE UPDATE OR BE AVAILABLE TOMORROW AFTERNOON DURING VISITING HOURS TO SPEAK TO PROVIDER.
--- NOTE | 2020-10-16 04:07 | NUR ---
SUMMARY NO NEW ISSUES NOTED. PT HAS SLEPT WELL. PT DENIES ANY INCREASED SOB. PT CURRENTLY SLEEPING AND BREATHING EASY. CALL LIGHT IN REACH.
[2020-10-16 04:32] LABS: BASOPHILS ABSOLUTE AUTO 0.03 K/mm3 (0.00-0.23); BASOPHILS PERCENT AUTO 0 % (0-2); EOSINOPHILS ABSOLUTE AUTO 0.18 K/mm3 (0.00-0.68); EOSINOPHILS PERCENT AUTO 2 % (0-6); Hematocrit 31.8 % (33.0-51.0); Hemoglobin 9.6 g/dL (11.5-16.0); IMMATURE GRAN ABSOLUTE AUTO 0.03 K/mm3 (0.00-0.10); IMMATURE GRAN PERCENT AUTO 0 % (0-1); LYMPHOCYTES ABSOLUTE AUTO 2.37 K/mm3 (0.84-5.20); LYMPHOCYTES PERCENT AUTO 26 % (21-46); MONOCYTES ABSOLUTE AUTO 1.24 K/mm3 (0.16-1.47); MONOCYTES PERCENT AUTO 14 % (4-13); Mean Corpuscular HGB 27.8 pg (26.0-34.0); Mean Corpuscular HGB Conc 30.2 g/dL (31.5-36.5); Mean Corpuscular Volume 92 fL (80-100); Mean Platelet Volume 10.5 fL (9.1-12.4); NEUTROPHILS ABSOLUTE AUTO 5.24 K/mm3 (1.96-9.15); NEUTROPHILS PERCENT AUTO 58 % (41-73); Platelet Count 140 K/mm3 (150-400); RDW Coefficient Variation 21.2 % (11.7-14.2); RDW Standard Deviation 71.6 fL (35.1-46.3); Red Blood Cell Count 3.45 M/mm3 (3.80-5.20); White Blood Cell Count 9.09 K/mm3 (4.00-11.30)
[2020-10-16 04:54] LABS: Albumin, Blood 2.6 g/dL (3.4-5.0); Anion Gap 1 mmol/L (6-16); Blood Urea Nitrogen 33 mg/dL (8-24); Bun/Creatinine Ratio 23.4 (12.0-20.0); CO2, Blood 36 mmol/L (21-32); Calcium, Blood 9.3 mg/dL (8.5-10.1); Chloride, Blood 102 mmol/L (98-108); Creatinine, Blood 1.41 mg/dL (0.40-1.00); Glomerular Filtration Rate 38 (60-); Glucose, Blood 152 mg/dL (70-99); Magnesium, Blood 2.1 mg/dL (1.6-2.4); Phosphorus, Blood 4.1 mg/dL (2.5-4.9); Potassium, Blood 4.1 mmol/L (3.5-5.5); Sodium, Blood 139 mmol/L (136-145)
--- NOTE | 2020-10-16 18:08 | NUR ---
SHIFT SUMMARY: PER TELEMETRY, PT'S HR DROPS TO 48-55 WHILE SHE SLEEPS, INCREASES TO 60-70'S WHEN AWAKENED. DENIES PAIN. WITHOUT O2, SHE DESATS TO MID 80%'S WITH ACTIVITY, REQUIRES 0.5-1 L/MIN NC TO MAINTAIN SATS 91-94%. WILL NEED HOME O2 EVAL PRIOR TO D/C HOME PER RESP THERAPIST. GETTING UP TO BR WITH FWW AND SBA. PHYSICAL THERAPY WORKED WITH PT THIS AFTERNOON. UP IN CHAIR THE ENTIRE DAY.
[2020-10-17 04:42] LABS: BASOPHILS ABSOLUTE AUTO 0.02 K/mm3 (0.00-0.23); BASOPHILS PERCENT AUTO 0 % (0-2); EOSINOPHILS ABSOLUTE AUTO 0.35 K/mm3 (0.00-0.68); EOSINOPHILS PERCENT AUTO 5 % (0-6); IMMATURE GRAN ABSOLUTE AUTO 0.03 K/mm3 (0.00-0.10); IMMATURE GRAN PERCENT AUTO 0 % (0-1); LYMPHOCYTES ABSOLUTE AUTO 1.73 K/mm3 (0.84-5.20); LYMPHOCYTES PERCENT AUTO 25 % (21-46); MONOCYTES ABSOLUTE AUTO 1.06 K/mm3 (0.16-1.47); MONOCYTES PERCENT AUTO 15 % (4-13); Mean Corpuscular HGB 27.1 pg (26.0-34.0); Mean Corpuscular Volume 93 fL (80-100); Mean Platelet Volume 10.4 fL (9.1-12.4); NEUTROPHILS ABSOLUTE AUTO 3.82 K/mm3 (1.96-9.15); NEUTROPHILS PERCENT AUTO 55 % (41-73); Platelet Count 132 K/mm3 (150-400); RDW Standard Deviation 71.7 fL (35.1-46.3); Red Blood Cell Count 3.32 M/mm3 (3.80-5.20); White Blood Cell Count 7.01 K/mm3 (4.00-11.30)
[2020-10-17 05:04] LABS: Albumin, Blood 2.6 g/dL (3.4-5.0); Anion Gap 2 mmol/L (6-16); Blood Urea Nitrogen 34 mg/dL (8-24); Bun/Creatinine Ratio 27.4 (12.0-20.0); CO2, Blood 33 mmol/L (21-32); Calcium, Blood 9.2 mg/dL (8.5-10.1); Chloride, Blood 103 mmol/L (98-108); Creatinine, Blood 1.24 mg/dL (0.40-1.00); Glomerular Filtration Rate 44 (60-); Glucose, Blood 140 mg/dL (70-99); Phosphorus, Blood 3.9 mg/dL (2.5-4.9); Potassium, Blood 3.8 mmol/L (3.5-5.5); Sodium, Blood 138 mmol/L (136-145)
--- NOTE | 2020-10-17 05:57 | NUR ---
pt ALERT WITH MILD CONFUSION, CAN BE VERY DEMANDING. Up to bathroom several times with 1 assist fww. Appetite good. Forgetful. Wearing oxygen 1/2 to 1 l nc. Day RN says PT has CPAP & oxygen concentrator set up at home but she does not use. DC planning involved with safe dc plan. Son involved with dc plan.
--- NOTE | 2020-10-17 12:39 | NUR ---
Upon receiving a referral for spiritual care, I visit patient. Patient is lying in bed and alert. Patient tells me about her me about her medical issues and about her many falls. Patient then shares about her 30 year career for a [employer] in [place] and about her son who she lives with. She also explains about her spiritual journey, beginning in her early years being baptized into the Gnosticist [employer]az[employer] then through her Mormon years and now decades at the [facility] in [place], [place]. Patient shows no signs of spiritual distress but just needed some encouragement. I reinforce helpful attitudes and practices and provide therapeutic listening, pastoral certified credit counselor and prayer. Patient responds well and shows signs of an elevated mood. I will continue to remain available to patient and family.
[2020-10-17] MEDS ORDERED: Lisinopril2.5 MG PO (16:11)
--- NOTE | 2020-10-17 16:44 | NUR ---
ADMIT: 10/16/20 DISCHARGE: 10/17/20 DX: CHF CC: [email or web address] ADMIT: 11/25/19 DISCHARGE: 11/30/19 DX: CHF KARSON CALL: SonRegan- [phone] RESIDENCE: HOME WITH SON CAREGIVER: SELF, SON AND 4 HOURS WEEK CAREGIVER DX:HTN, HEART FAILURE, DMII, SEE LIST DME: DM SUPPLES AND CPAP, FRONT WHEEL WALKER AND 4 WHEEL WALKER., bedside commode. CCM: referral 2016 & 2019 HOME HEALTH: [facility]-2019 SUMMARY: Admit: 10/16/20 10/17/20- Per Dr. Darby, pt is stable to d/c today. Went and met with pt and son, Regan. Pt's son will be taking her home. Her pharmacy is [facility] in [place]. Pt lives with her son, so he will be there to assist her. Pt does have caregivers that come into the home twice a week for a couple of hours. Son requested a bedside commode due to pt's increased weakness, ordered this through [facility] to have it delivered to the home. Face to face for home health with PT and OT services was put in. Pt would like to have [facility]. [facility] will [facility] out the the pt. -tiffany
--- NOTE | 2020-10-17 16:57 | NUR ---
PATIENT DC'D TO HOME WITH HOME HEALTH. DC INSTRUCTIONS AND EDUCATION DISCUSSED WITH PATIENT AND SON AND COPY PROVIDED. PATIENT DENIES ANY FURTHER QUESTIONS OR CONCERNS.
== END 2020-10-17 16:47 | disposition home health service (06) | DRG 291 ==
LOC: ER 14:34 → MEDS 21:16 → ENPENDDIS 10-17 15:37 → MEDS 10-17 16:47
PROVIDERS: Emergency Medicine; Internal Medicine Gastroenterology; ADMIT Internal Medicine
DX: I13.0 Hypertensive heart and chronic kidney disease with heart failure and stage 1 through stage 4 chronic kidney disease, or unspecified chronic kidney disease (principal); J96.01 Acute respiratory failure with hypoxia; I50.23 Acute on chronic systolic (congestive) heart failure; C85.10 Unspecified B-cell lymphoma, unspecified site; I48.20 Chronic atrial fibrillation, unspecified; Z23 Encounter for immunization; Z66 Do not resuscitate; Z20.822 Contact with and (suspected) exposure to COVID-19; J44.9 Chronic obstructive pulmonary disease, unspecified; F32.9 Major depressive disorder, single episode, unspecified; E78.00 Pure hypercholesterolemia, unspecified; E11.9 Type 2 diabetes mellitus without complications; F03.90 Unspecified dementia, unspecified severity, without behavioral disturbance, psychotic disturbance, mood disturbance, and anxiety; E03.9 Hypothyroidism, unspecified; N18.30 Chronic kidney disease, stage 3 unspecified; D63.1 Anemia in chronic kidney disease; Z87.891 Personal history of nicotine dependence; Z90.49 Acquired absence of other specified parts of digestive tract; Z98.41 Cataract extraction status, right eye; Z98.42 Cataract extraction status, left eye; Z90.89 Acquired absence of other organs; Z88.8 Allergy status to other drugs, medicaments and biological substances; Z79.4 Long term (current) use of insulin; Z79.899 Other long term (current) drug therapy
CPT/HCPCS: 0241U; 36415; 70450; 71045; 80053; 80069; 81003; 82550; 82947; 83735; 83880; 84484; 85025; 93005; 93010; 93306; 94640; 94760; 96374-59; 97110; 97112; 97116; 97162; 97165; 97530; 97535; 99285-25; A9270; J1650; J1940; P9612; Q2038

== ENCOUNTER 2020-10-18 04:37 | Emergency (ER) | payer MEDICARE ==
[~2020-10-18] VITALS: Ht 157.5 cm; Wt 90.7 kg
[~2020-10-18 04:37] MED LIST changes: +ALBU90OI61 INH; +AMIODARONE HCL200 M1 PO; +Cranberry400 MG PO; +Docusate Sodiu250 MG PO; +FERROUS SULFATE 142 MG PO; +Flovent Disku100 MCG INH; +LEVEMIR FL100 UNIT/2 SC; +LEVO-T100 MC1 PO; +Lisinopril2.5 MG PO; +METO25ER PO; +MIRALAX17 GM PO; +Neurontin 100100 MG PO; +OMEP20ER PO; +POTA10T PO; +Prozac20 MG PO; +ROSUVASTATIN CAL5 MG PO; +TIOT18 INH; +VITAMIN C125 MG PO; +Vitamin D2000 UNIT PO
== END 2020-10-18 06:00 | disposition home or self-care (01) ==
LOC: ER 04:37
DX: M25.511 Pain in right shoulder (principal); R51.9 Headache, unspecified; I11.0 Hypertensive heart disease with heart failure; I50.22 Chronic systolic (congestive) heart failure; E11.9 Type 2 diabetes mellitus without complications; I48.91 Unspecified atrial fibrillation; Z79.899 Other long term (current) drug therapy; Z79.01 Long term (current) use of anticoagulants; Z79.4 Long term (current) use of insulin; Z88.8 Allergy status to other drugs, medicaments and biological substances; J44.9 Chronic obstructive pulmonary disease, unspecified; Z87.891 Personal history of nicotine dependence; W01.10XA Fall on same level from slipping, tripping and stumbling with subsequent striking against unspecified object, initial encounter
CPT/HCPCS: 99284